=== PATIENT | female | born 1990 | race African-American/Black ===

== ENCOUNTER 2024-05-01 07:03 | Emergency (ER) | payer OTHER, SELFPAY ==
--- NOTE | ~2024-05-01 | XR_ITS ---
EXAMINATION: XR hand LT min 3V, XR wrist LT min 3V DATE: 05/01/2024 08:00 INDICATION: Left hand and wrist pain post fall with limited range of movement TECHNIQUE: 1. Posteroanterior, oblique, and lateral views of the left wrist were obtained. 2. Dorsal palmar, oblique and lateral views of the left hand were obtained. COMPARISON: None. FINDINGS: Alignment of the left hand and wrist is normal. No fracture identified. Joint spaces are normal. N o focal soft tissue swelling. IMPRESSION: 1. Normal left hand and wrist radiographs. Reviewed, dictated and finalized at location A. [place] KEY HOLDER IMPRESSION: 1. Normal left hand and wrist radiographs.
[2024-05-01 07:06] VITALS: BP 185/101; PULSE 87; RESP 18; TEMP 36.9; O2SAT 97
--- NOTE | 2024-05-01 07:21 | ED_ITS ---
HPI - General Adult General Chief complaint: Extremity Injury, Upper Stated complaint: L wrist pain Time Seen by Provider: 05/01/24 07:10 History of Present Illness HPI narrative: 33-year-old female present to the emergency department for evaluation for left hand and left wrist pain. Patient reports she was walking and slipped on the ice while she was walking into work. Patient denies any other pain or injury. Patient denies striking head denies loss conscious. Patient denies any left shoulder and left elbow pain. Patient does report increased pain with movement of the left wrist. No deformity. Related Data Allergies Allergy/AdvReac Type Severity Reaction Status Date / Time No Known Allergies Allergy Verified 05/01/24 07:05 Review of Systems Review of Systems: All systems reviewed & are unremarkable except as noted in HPI and below Exam Narrative: APPEARANCE: Well appearing, no pain, no distress, well-nourished. HEAD: normocephalic, atraumatic. EYES: PERRLA/EOMI, conjunctivae clear. NOSE: Normal no drainage EARS:TMS clear with good light reflex. THROAT: Pharynx clear, no exudate. NECK: Supple. No adenopathy, no masses. RESPIRATORY: Airway patent, respirations nonlabored. Clear to auscultation bilaterally, no rales, rhonchi, wheezing. CARDIOVASCULAR: Regular rate and rhythm without murmurs rubs or gallops. ABDOMINAL: Soft, nontender, nondistended, normal bowel sounds MUSCULOSKELETAL: no tenderness of left shoulder left elbow left proximal forearm, patient does have tenderness to left wrist and left hand. Neurovascular intact without deformity. NEURO: Alert. Cranial nerves II through XII intact. Grossly intact SKIN: Warm, dry. Normal Color Course Vital Signs Vital signs: Vital Signs Temperature 98.4 F 05/01/24 07:06 Pulse Rate 87 05/01/24 07:06 Respiratory Rate 18 05/01/24 07:06 Blood Pressure 185/101 H 05/01/24 07:06 Pulse Oximetry 97 05/01/24 07:06 Oxygen Delivery Room Air 05/01/24 07:06 Temperature 98.4 F 05/01/24 07:06 Pulse Rate 60 05/01/24 08:39 Respiratory Rate 16 05/01/24 08:39 Blood Pressure 153/99 H 05/01/24 08:39 Pulse Oximetry 100 05/01/24 08:39 Oxygen Delivery Room Air 05/01/24 07:06 Medical Decision Making MDM Narrative Medical decision making narrative: 33-year-old female presenting to the emergency department for evaluation for left hand and wrist pain after a fall in the parking lot. X-rays were negative for acute fracture dislocation. Patient was provided Dereje wrap for comfort. Patient did request off until Thursday. Work note was provided. Differential Diagnosis Differential Diagnosis: And fracture, wrist fracture, hand contusion, wrist contusion, wrist sprain Vital Signs Vital Signs: Vital Signs Temperature 98.4 F 05/01/24 07:06 Pulse Rate 87 05/01/24 07:06 Respiratory Rate 18 05/01/24 07:06 Blood Pressure 185/101 H 05/01/24 07:06 Pulse Oximetry 97 05/01/24 07:06 Oxygen Delivery Room Air 05/01/24 07:06 Temperature 98.4 F 05/01/24 07:06 Pulse Rate 60 05/01/24 08:39 Respiratory Rate 16 05/01/24 08:39 Blood Pressure 153/99 H 05/01/24 08:39 Pulse Oximetry 100 05/01/24 08:39 Oxygen Delivery Room Air 05/01/24 07:06 Imaging Data Radiologist's impression: Impressions Hand X-Ray 05/01/24 08:07 IMPRESSION: 1. Normal left hand and wrist radiographs. Wrist X-Ray 05/01/24 08:07 IMPRESSION: 1. Normal left hand and wrist radiographs. Discharge Plan Discharge Clinical Impression: Sprain and strain of wrist Patient Disposition: Home, Self-Care Condition: Stable Instructions: Antibiotic Form, Wrist Sprain (ED) Additional Instructions: Tylenol and ibuprofen for comfort. Ice as directed. Dereje wrap for comfort. Have close follow-up with your primary care physician. If you have any worsening symptoms then please call or return to the emergency department. Patient Language: Sudanese Follow-up/Referrals: PHYSICIAN NOT ON STAFF,NONSTAFF [Primary Care Provider] - Stand Alone Forms: Work/School Release IP
--- OUTSIDE RECORDS SUMMARY | 2024-05-01 07:37 | XMS_ITS | Clinical Summary ---
Author Organization [facility] [employer] Address [address] [place] [address] Care Team Providers Care Barrel Drainer Name Role Phone Unavailable Primary Care Provider Unavailabl e Source Comments [facility],non-owned Affiliates and Associated Physician Practices is amultiple site organization consisting of ambulatory clinics and hospital sitesin [place], [place], [place] and [place]. This disclosure is being madepursuant to the Care Everywhere program and may not contain all information available regarding this patient. Last updated 17.[facility] [employer] Allergies No known active allergies Medications * Be aware that medications may not be up to date on this document. Alwaysverify current medications with the patient. Medication Sig Dispensed Refills Start Date End Date Status amLODIPine (NORVASC) 5 MG tablet Take 5 mg by mouth once daily 11/23/2020 Active ketoconazole (NIZORAL) 2 % shampoo Apply to wet hair, leave on for 3 minutes, then rinse; three times weekly. 30 days supply 120 mL 5 07/16/2021 Active clobetasol (TEMOVATE) 0.05 % solution Apply to affected area on scalp BID. 30 day supply. 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 03/13/2019 R/O PTL: -No e/o PTL, UTI, cervicitis/vaginitis. SSE: WNL wet prep, normal physiologic discharge. SVE cl/l/high -No e/o dehydration, hydrated with PO fluids. Urine dip negative -No e/o contractions with palpation or on toco, patient comfortable -Abdomen benign, likely round ligament/musculoskeletal discomforts of . Pain improved with Tylenol and heat packs -Discussed normal physiologic discomforts of . Encouraged tylenol, heat, PG support belt. PTL precautions reviewed FWB: Reactive NST Third 01/07/2019 Hx of section 01/07/2019 Hx of vaginal after 01/07/2019 Encounter for ultrasound 01/07/2019 Abnormal finding on ultrasound 01/07/2019 Overview (01/07/2019): On outside scan dilated renal pelvis Immunizations Name Administration Dates Next Due INFLUENZA VACCINE, TRIV. (AF LURIA, FLUZONE TRIVALENT; 6MO+) (IIV3) 02/01/2018 INFLUENZA VACCINE 09/29/2020,12/11/2019 Family History Medical History Relation Name Comments None Known Brother None Known Father None Known Maternal Aunt None Known Maternal Grandfather None Known Maternal Grandmother None Known Maternal Uncle None Known Mother None Known Other None Known Paternal Aunt None Known Paternal Grandfather None Known Paternal Grandmother None Known Paternal Uncle None Known Sister Asthma Neg Hx CVA Neg Hx Cancer - Breast Neg Hx Cancer - Other Neg Hx Cancer - Skin, Melanoma Neg Hx Cancer - Skin, Non Melanoma Neg Hx Eczema Neg Hx Hemophilia Neg Hx Psoriasis Neg Hx Relation Name Status Comments Brother Father Maternal Aunt Maternal Grandfather Maternal Grandmother Maternal Uncle Mother Other Paternal Aunt Paternal Grandfather Paternal Grandmother Paternal Uncle Sister Social History Tobacco Use Types Packs/Day Years Used Date Smoking Tobacco: Never Smokeless Tobacco: Never Sex and Gender Information Value Date Recorded Sex Assigned at Not on file Gender Identity Female 10/03/2018 5:00 PM CDT Sexual Orientation Not on file Last Filed Vital Signs Vital Sign Reading Time Taken Comments Blood Pressure 130/70 10/03/2018 5:30 PM CDT Pulse 72 10/03/2018 2:03 PM CDT Temperature 36.8 C (98.2 F) 10/03/2018 2:03 PM CDT Respiratory Rate 16 10/03/2018 2:03 PM CDT Oxygen Saturation 100% 10/03/2018 5:45 PM CDT Inhaled Oxygen Concentration - - Weight 88.5 kg (195 lb) 10/03/2018 1:25 PM CDT Height - - Body Mass Index - - Plan of Treatment Health Maintenance Due Date Last Done Comments PAP SMEAR 1990 HIV SCREENING 12/19/2007 HEPATITIS C SCREENING 12/14/2010 DTAP/TDAP/TD VACCINES (1 - Tdap) 12/19/2011 HEPATITIS B VACCINE (1 of 3 - 19+ 3-dose series) 12/19/2011 COVID-19 VACCINE (3 - 2023-2 5 season) 2023 09/26/2020, 09/05/2020 INFLUENZA VACCINE (#1) 2023 , 12/11/2019, 02/01/2018 DEPRESSION SCREENING 03/23/2024 ZOSTER VACCINE (1 of 2) 2042 HIB VACCINE Aged Out No longer eligi ble based on patient's age to complete this topic HPV VACCINE Aged Out No longer eligi ble based on patient's age to complete this topic MENINGOCOCCAL (Group B) VACCINE Aged Out No longer eligible b ased on patient's age to complete this topic MENINGOCOCCAL VACCINE Aged Out No cesar mickey eligible based on patient's age to complete this topic PNEUMOCOCCAL VACCINE Aged Out No long er eligible based on patient's age to complete this topic Steven Jenkins Personal/Family Self 1990 [id number] [id number] Steven Jenkins Personal/Family Self 1990 [id number] [place] [id number] E-SCREEN,[employer] Employer [employer]N [employer] [address] [place] [address]
--- OUTSIDE RECORDS SUMMARY | 2024-05-01 07:37 | XMS_ITS | Patient Health Summary ---
Author Organization [facility] Address [address] [place] [place] [address] Care Team Providers Care Career Development Engineer Name Role Phone Unavailable Primary Care Provider Unavailabl e Note from [facility],non-owned Affiliates and Associated Physician Practices is amultiple site organization consisting of ambulatory clinics and hospital sitesin [place], [place], [place] and [place]. This disclosure is being madepursuant to the Care Everywhere program and may not contain all information available regarding this patient. Last updated 17.[facility] Allergies No known active allergies Medications * Be aware that medications may not be up to date on this document. Alwaysverify current medications with the patient. * amLODIPine (NORVASC) 5 MG tablet(Started 11/23/2020) Take 5 mg by mouth once daily * ketoconazole (NIZORAL) 2 % shampoo(Started 07/16/2021) Apply to wet hair, leave on for 3 minutes, then rinse; three times weekly. 30 days supply 5 refills by 07/16/2022 * clobetasol (TEMOVATE) 0.05 % solution(Started 07/16/2021) Apply to affected area on scalp BID. 30 day supply. 5 refills by 07/16/2022 * clobetasol (Temovate) 0.05 % ointment(Started 04/07/2023) APPLY TO THE AFFECTED AREA ON HANDS TWICE DAILY Active Problems Problem Noted Date Diagnosed Date Other seborrheic dermatitis 07/16/2021 History of staph infection 03/11/2020 Dyshidrotic eczema 02/10/2020 Secondary impetiginization 02/10/2020 Abdominal pain 03/13/2019 Third 01/07/2019 Hx of section 01/07/2019 Hx of vaginal after 01/07/2019 Encounter for ultrasound 01/07/2019 Abnormal finding on ultrasound 01/07/2019 Immunizations * INFLUENZA VACCINE, TRIV. (AFLURIA, FLUZONE TRIVALENT; 6MO+) (IIV3)(Given 02/01/2018) * INFLUENZA VACCINE(Given 09/29/2020, 12/11/2019) Social History Tobacco Use Types Packs/Day Years [...] - - Body Mass Index - - Procedures * CULTURE AEROBIC(Performed 07/19/2021) Performed for Other seborrheic dermatitis * CULTURE AEROBIC(Performed 02/13/2020) Performed for Rash and other nonspecific skin eruption * SONOGRAM - COMPLETE(Performed 01/10/2019) Performed for Third (HCC), Hx of section, Hx of vaginal after , Encounter for ultrasound (HCC), Abnormal finding on ultrasound * VARICELLA ZOSTER ANTIBODY IGG(Performed 10/22/2018) Performed for Routine general medical examination at a health care facility * RUBELLA ANTIBODY IGG TITER(Performed 10/22/2018) Performed for Routine general medical examination at a health care facility * MUMPS ANTIBODY IGG(Performed 10/22/2018) Performed for Routine general medical examination at a health care facility * RUBEOLA ANTIBODY IGG(Performed 10/22/2018) Performed for Routine general medical examination at a health care facility * HEPATITIS B SURFACE ANTIBODY QUANT(Performed 10/22/2018) Performed for Routine general medical examination at a health care facility * US OB LESS 14 WKS W TRANSV W DOPP(Performed 10/03/2018) Performed for Left lower quadrant abdominal pain affecting in first trimester (HCC) * BLOOD TYPE ABO+ RH PANEL(Performed 10/03/2018) * HCG URINE QUALITATIVE - POCT (IP) INTERFACED(Performed 10/03/2018) * URINALYSIS REFLEX MICROSCOPIC REFLEX CULTURE(Performed 10/03/2018) * HCG URINE QUAL POCT NOTIFICATION(Performed 10/03/2018) * HCG BETA BLOOD QUANTITATIVE(Performed 10/03/2018) * COMPREHENSIVE METABOLIC PANEL(Performed 10/03/2018) * CBC W AUTO DIFFERENTIAL(Performed 10/03/2018) Results * (ABNORMAL) CULTURE AEROBIC (07/19/2021 10:00 AM CDT) Only the most recent of2 resultswithin the time period is included. Culture (A) [facility] Comment: CULTURE, AEROBIC BACTERIA Micro Number: [id number] Test Status: Final Specimen Source: Scalp Specimen Quality: Adequate Result: Heavy growth of Methicillin resistant Staphylococcus aureus (MRSA) Negative for inducible clindamycin resistance. COMMENT: Skin jose also present. MRSA INT TERRANCE CIPROFLOXACIN I 2 CLINDAMYCIN S <=0.25 ERYTHROMYCIN R >=8 GENTAMICIN S <=0.5 LEVOFLOXACIN S 1 OXACILLIN R NR 1 TETRACYCLINE S <=1 TRIMETHOPRIM/SULFA S <=10 VANCOMYCIN S 1 S=Susceptible I=Intermediate R=Resistant * = Not Tested NR = Not Reported NN = See Therapy Comments THERAPY COMMENTS Note 1: Oxacillin-resistant staphylococci are resistant to all currently available beta-lactam antimicrobial agents with the possible exception of Ceftaroline. NO COLLECTION DATE RECEIVED. WE HAVE USED THE DATE THE SPECIMEN WAS RECEIVED BY THIS LABORATORY THE COLLECTION DATE. IF THIS IS INCORRECT, PLEASE CONTACT CLIENT SERVICES. PHONE NUMBER: [phone] Test Performed at: [facility] [address] MARISOL WU MD Microbiology ENTIRE SCALP / Unknown 07/17/2021 2:35 AM CDT Al Mir MD LAB - MICROBIOLOGY [address] [place] [address] * SONOGRAM - COMPLETE (01/10/2019 8:28 AM CDT) Anatomical Region Laterality Modality Other 01/10/2019 8:28 AM CDT Narrative 01/10/2019 11:54 AM CDT [facility] PHONE: FAX: Pat. Name: STEVEN HOUSTON Pat. No: [id number] Study Date: 01/10/2019 8:28am , Age: 09 1990, 28 Pregnancies: 3, Para 2 Height: 62 in Weight: 193 lb LMP: 08/12/2018 GA by LMP: 21w4d GA by US: 21w5d PERCY: 05/18/2019 GA Selected: 21w5d (Sonographic) PERCY: 05/18/2019 Referring MD: Pradip Peace MD Beaver Trapper: Ibeth Yu RDMS CPT4: 22755 BMI: 35.3 Hist/Ind: EIF Dilated renal pelvis on outside scan Qnatal: low risk MEASUREMENTS & AGE GROWTH EVALUATION Measurement GA Range Srce %for GA Ratios ----- ---- ------- BPD 5.1 cm 21w3d ([id number]) Hadl BPD 39% FL/BPD 0.76 HC 19.8 cm 22w0d (16c0e-77p6m) Hadl HC 48% FL/AC 0.23 AC 16.9 cm 21w6d ([id number]) Hadl AC 49% HC/AC 1.17 (1.05 - 1.24) FL 3.9 cm 22w3d ([id number]) Hadl FL 65% CI 0.73 (0.70 - 0.86) HL 3.8 cm 23w2d ([id number]) Abelino HL 76% Cere 2.6 cm 23w1d ([id number]) Chano Cere86% GA for sonogram 21w5d ([id number]) Weight Estimate: based on (BPD,HC,AC,FL) Hadlock Weight: 474 gm (405-543gm) Hadloc : 1lbs, 0oz Normal: 455 gm (341-568gm) Hadloc Wt% 64% for 21w5d Heart Rate: 153 bpm EVAL, PLACENTA Presentation: cephalic Umbilical Cord: 3 Vessels Placenta: anterior Heart Rate: 153 bpm Amniotic Fluid Volume: Normal Anatomy!Normal!Abnormal!Suboptimal!Prev. Seen!Comments Cranium ! x ! ! ! ! Mdl (CSP/Thal! x ! ! ! ! Ventricles ! x ! ! ! ! Choroid Plexu! x ! ! ! ! Cerebellum ! x ! ! ! ! Cisterna M. ! x ! ! ! ! Nuchal Fold ! x ! ! ! ! Profile ! x ! ! ! ! Nasal Bone ! x ! ! ! ! Lip ! x ! ! ! ! Spine ! x ! ! ! ! Lungs ! x ! ! ! ! 4 Chamber Hea! x ! ! ! ! LVOT ! x ! ! ! ! RVOT ! x ! ! ! ! 3 Vessel View! x ! ! ! ! Cross-over ! x ! ! ! ! Ductal Arch ! x ! ! ! ! Aortic Arch ! x ! ! ! ! Caval View ! x ! ! ! ! Situs ! x ! ! ! ! Diaphragm ! x ! ! ! ! Stomach ! x ! ! ! ! Bowel ! x ! ! ! ! Kidneys ! x ! ! ! ! Bladder ! x ! ! ! ! 3 Vessel Cord! x ! ! ! ! Cord In! x ! ! ! ! Upper Extremi! x ! ! ! ! Hands ! x ! ! ! ! Lower Extreme! x ! ! ! ! Feet ! x ! ! ! ! External Celina! x ! ! ! !Female Placental Cor! x ! ! ! ! CLINICAL SUMMARY Study Number: 1 A single fetus is seen in cephalic presentation. The measurements today are consistent with appropriate size for the PERCY provided. The PERCY is based on LMP and prior ultrasound . The amniotic fluid volume is within normal limits. anatomy was technically adequate. A left echogenic focus is seen. No major malformations were seen within the limitations of ultrasound. IMPRESSION: Single, live, intrauterine at 21w5d size is within normal limits Amniotic fluid volume: within normal limits Left echogenic focus with low risk Qnatal RECOMMEND: Ultrasound as clinically indicated Thank you for allowing us the opportunity to care for your patient. Damián Rutherford MD <Electronic Signature> 01/10/2019 11:52am Ordering Provider Unlisted MD HERNANDEZ ORDERA BLES * HEPATITIS B SURFACE ANTIBODY QUANT (10/22/2018 11:17 AM CDT) Pathologist [facility] Hepatitis B Virus Surface Antibody >1000.00 IU/L 10/25/2018 10:55 AM CDT [facility] ([facility]) Comment: The anti-HBs is greater than or equal to 10 IU/L. This patient has either had an antibody response to HBV vaccination, received a transfusion, or has recovered from HBV infection. This patient should be considered immune to hepatitis B. An anti-HBs result greater than or equal to 10 IU/L implies immunity. For post-vaccination antibody testing guidelines for the general public refer to MMWR March 14, 2005/Vol. 54(No. 16);04-14, and for healthcare workers refer to MMWR March 11, 2013/Vol. 62(No. 10);04-10. Reference Interval: anti-HBs 9.99 IU/L or less ....... Negative 10.00 IU/L or greater .... Positive Results greater than 1,000.00 IU/L are reported as greater than 1,000.00 IU/L. This assay should not be used for blood donor screening, associated re-entry protocols, or for screening Human Cell, Tissues and Cellular and Tissue-Based Products (HCT/P). Performed by [facility], [address] [place] [address] www.[email or web address], Benjy Sanchez MD, Lab. Director Blood BLOOD SPECIMEN / Unknown Venipuncture / Unknown 10/22/2018 11:17 AM CDT 10/22/2018 11:17 AM CDT Ann Cramer ENERGY EFFICIENCY ENGINEER-RESEARCH DAIRY FARM SUPERVISOR LAB - SEROLOGY ORDERABLES [facility] ([facility]) [address] [place] [address], [facility] * RUBELLA ANTIBODY IGG TITER (10/22/2018 11:17 AM CDT) Pathologist [facility] Rubella Antibody IgG 39.3 IU/mL 10/25/2018 4:01 AM CDT [facility] ([facility]) Comment: INTERPRETIVE INFORMATION: Rubella Antibody, IgG Less than 9 IU/mL ........ Not Detected 9 - 9.9 IU/mL ............ Indeterminate-Repeat testing in 10-14 days may be helpful. 10 IU/mL or Greater ...... Detected The best evidence for current infection is a significant change on two appropriately timed specimens, where both tests are done in the same laboratory at the same time. The magnitude of the measured result is not indicative of the amount of antibody present. Performed by [facility], [address] [id number] [email or web address], Benjy Sanchez MD, Lab. Director Blood BLOOD SPECIMEN / Unknown Venipuncture / Unknown 10/22/2018 11:17 AM CDT 10/22/2018 11:17 AM CDT Ann Mykel Cramer ENERGY EFFICIENCY ENGINEER-RESEARCH DAIRY FARM SUPERVISOR LAB - SEROLOGY ORDERABLES [facility] ([facility]) [address] [place] [address], [facility] * RUBEOLA ANTIBODY IGG (10/22/2018 11:17 AM CDT) [facility] Measles (Rubeola) Antibody IgG >300.0 AU/mL 10/25/2018 3:58 AM CDT [facility] ([facility]) Comment: INTERPRETIVE INFORMATION: Measles (Rubeola) Antibody, IgG 24.9 AU/mL or less........ Negative - No significant level of detectable measles (rubeola) IgG antibody. 25.0-29.9 AU/mL .......... Equivocal - Repeat testing in 10-14 days may be helpful. 30.0 AU/mL or greater .... Positive - IgG antibody to measles (rubeola) detected which may indicate a current or past exposure/immunization to measles (rubeola). The best evidence for current infection is a significant change on two appropriately timed specimens, where both tests are done in the same laboratory at the same time. Performed by [facility], [address] [id number] [email or web address], Benjy Sanchez MD, Lab. Director Blood BLOOD SPECIMEN / Unknown Venipuncture / Unknown 10/22/2018 11:17 AM CDT 10/22/2018 11:17 AM CDT [facility] - CHEMISTRY ORDERABLES Performing Organization Address [facility] de Phone Number [facility] ([facility]) [address] * MUMPS ANTIBODY IGG (10/22/2018 11:17 AM CDT) Mumps Virus Antibody IgG 65.3 AU/mL 10/25/2018 5:20 AM CDT [facility] ([facility]) Comment: INTERPRETIVE INFORMATION: Mumps Ab, IgG by OLIVERIO 8.9 AU/mL or less .... Negative - No significant level of detectable IgG mumps virus antibody 9.0-10.9 AU/mL ....... Equivocal - Repeat testing in 10-14 days may be helpful 11.0 AU/mL or greater: Positive - IgG antibody to mumps virus detected, which may indicate a current or past exposure/ immunization to mumps virus. The best evidence for current infection is a significant change on two appropriately timed specimens, where both tests are done in the same laboratory at the same time. Performed by [facility], [address] [place] [address] www.[email or web address], Benjy Sanchez MD, Lab. Director Blood BLOOD SPECIMEN / Unknown Venipuncture / Unknown 10/22/2018 11:17 AM CDT 10/22/2018 11:17 AM CDT [facility] - CHEMISTRY ORDERABLES Performing Organization Address [facility] Co de Phone Number [facility] ([facility]) [address] * VARICELLA ZOSTER ANTIBODY IGG (10/22/2018 11:17 AM CDT) Varicella zoster Virus Antibody IgG 1505 IV 10/25/2018 5:18 AM CDT [facility] ([facility]) Comment: INTERPRETIVE INFORMATION: VZV Ab, IgG 134 IV or less ....... Negative - No significant level of detectable IgG varicella- zoster antibody. 135 -165 IV .......... Equivocal - Repeat testing in 10-14 days may be helpful. 166 IV or greater .... Positive - IgG antibody to varicella-zoster detected, which may indicate a current or past varicella-zoster infection. The best evidence for current infection is a significant change on two appropriately timed specimens, where both tests are done in the same laboratory at the same time. Performed by [facility], [address] [place] [address] www.[email or web address], Benjy Sanchez MD, Lab. Director Blood BLOOD SPECIMEN / Unknown Venipuncture / Unknown 10/22/2018 11:17 AM CDT 10/22/2018 11:17 AM CDT Ann Cramer ENERGY EFFICIENCY ENGINEER-RESEARCH DAIRY FARM SUPERVISOR LAB - CHEMISTRY ORDERABLES [facility] ([facility]) [address] [id number], [facility] * US OB LESS 14 WKS W TRANSV W DOPP (10/03/2018 6:18 PM CDT) Anatomical Region Laterality Modality Ultrasound 10/03/2018 6:27 PM CDT Impressions 10/03/2018 6:31 PM CDT Viable Intrauterine as described. No subchorionic hematoma identified. Reading Radiologist: Vinny Finch MD on 10/03/2018 at 6:31 PM Narrative 10/03/2018 6:31 PM CDT Transabdominal and transvaginal pelvic ultrasound; early obstetric Spectral Doppler ultrasound COMPARISON: No relevant examinations. HISTORY: Positive test. Pelvic pain. HISTORY: From RIS- Other specified related conditions, first trimester. FINDINGS + TECHNIQUE: Real time transabdominal and transvaginal pelvic ultrasound was performed by the claim professional with DICOM image capture. Additionally, Color Doppler and pulse wave Spectral Doppler interrogation was performed and interpreted. Obstetric follow-up care is recommended possibly including follow-up laboratory evaluation and possible dedicated obstetric ultrasound examinations at OB's discretion. This exam does not constitute a survey. Uterus/Fetus: An intrauterine is identified. Single intrauterine identified. Cesar Chavez-rump length of 12 mm corresponds with 7 weeks 3 days. Heart rate is 160 bpm Ovarian Measurement: Right: within normal limits. Left: within normal limits. No suspicious adnexal or ovarian lesions. 13 mm left-sided corpus luteum. There is preserved doppler flow to the visible ovary/ovaries. No evidence of significant free intraperitoneal fluid. Procedure Note Al Finch MD - 10/03/2018 Transabdominal and transvaginal pelvic ultrasound; early obstetric Spectral Doppler ultrasound COMPARISON: No relevant examinations. HISTORY: Positive test. Pelvic pain. HISTORY: From RIS- Other specified related conditions, first trimester. FINDINGS + TECHNIQUE: Real time transabdominal and transvaginal pelvic ultrasound was performed by the claim professional with DICOM image capture. Additionally, Color Doppler and pulse wave Spectral Doppler interrogation was performed and interpreted. Obstetric follow-up care is recommended possibly including follow-up laboratory evaluation and possible dedicated obstetric ultrasound examinations at OB's discretion. This exam does not constitute a survey. Uterus/Fetus: An intrauterine is identified. Single intrauterine identified. Cesar Chavez-rump length of 12 mm corresponds with 7 weeks 3 days. Heart rate is 160 bpm Ovarian Measurement: Right: within normal limits. Left: within normal limits. No suspicious adnexal or ovarian lesions. 13 mm left-sided corpus luteum. There is preserved doppler flow to the visible ovary/ovaries. No evidence of significant free intraperitoneal fluid. IMPRESSION Viable Intrauterine as described. No subchorionic hematoma identified. Reading Radiologist: Vinny Finch MD on 10/03/2018 at 6:31 PM Carlton Ortez MD ORDERABLES * BLOOD TYPE ABO+ RH PANEL (10/03/2018 3:42 PM CDT) ABO A 10/03/2018 4:48 PM CDT [facility] Rh Type Positive 10/03/2018 4:48 PM CDT [facility] Blood BLOOD SPECIMEN / Unknown Venipuncture / Unknown 10/03/2018 3:42 PM CDT 10/03/2018 3:45 PM CDT Kendy Schmitz ENERGY EFFICIENCY ENGINEER-RESEARCH DAIRY FARM SUPERVISOR LAB - BLOOD BANK O RDERABLES [facility] [address] [place] [address], [facility] [phone] * (ABNORMAL) HCG URINE QUALITATIVE - POCT (IP) INTERFACED (10/03/2018 1:26 PM CDT) HCG Qual Urine Positive(A ) Negative 10/03/2018 1:31 PM CDT [facility] Urine URINE / Unknown 10/03/2018 1 :26 PM CDT 10/03/2018 1:30 PM CDT Provider Unknown LAB - POINT OF CARE ORDERABLES Performing Organization Address [facility] Co de Phone Number [facility] [address] [place] [address] * (ABNORMAL) URINALYSIS REFLEX MICROSCOPIC REFLEX CULTURE (10/03/2018 1:22 PM CDT) Color UA Yellow Straw, Yellow 10/03/2018 1:30 PM CDT [facility] Clarity UA Clear Clear 10/03/2018 1:30 PM CDT [facility] Glucose UA Negative Negative 10/03/2018 1:30 PM CDT [facility] Bilirubin UA Negative Negative 10/03/2018 1:30 PM CDT [facility] Ketone UA 1+(A) Negative 10/03/2018 1:30 PM CDT [facility] Specific [place] UA 1.020 1.005 - 1.030 10/03/2018 1:30 PM CDT [facility] Blood UA Negative Negative 10/03/2018 1:30 PM CDT [facility] pH UA 6.0 5.0 - 8.0 pH 10/03/2018 1:30 PM CDT [facility] Protein UA Negative Negative 10/03/2018 1:30 PM CDT [facility] Urobilinogen UA Negative Negative mg/dL 10/03/2018 1:30 PM CDT [facility] Nitrite UA Negative Negative 10/03/2018 1:30 PM CDT [facility] Leukocyte UA Negative Negative 10/03/2018 1:30 PM CDT [facility] Urine Microscopy Urine microscopy not indicated 10/03/2018 1:30 PM CDT [facility] Reflex Status Culture not indicated 10/03/2018 1:30 PM CDT [facility] Urine URINE SPECIMEN OBTAINED BY CLEAN CATCH PROCEDURE / Unknown Collection / Unknown 10/03/2018 1:22 PM CDT 10/03/2018 1:25 PM CDT Narrative [facility] - 10/03/2018 1:30 PM CDT Carlton Ortez MD LAB - URINALYSIS ORD ERABLES [facility] [address] [place] [address] * HCG URINE QUAL POCT NOTIFICATION (10/03/2018 1:20 PM CDT) Comment Notification Label Only - See Separate Report 10/03/2018 2:31 PM CDT [facility] Urine URINE / Unknown 10/03/2018 1 :20 PM CDT 10/03/2018 1:20 PM CDT Carlton Ortez MD LAB - URINALYSIS ORD ERABLES Performing Organization Address City/[facility]/ZIP Co de Phone Number [facility] [address] [place] [address] * (ABNORMAL) CBC W AUTO DIFFERENTIAL (10/03/2018 1:17 PM CDT) WBC 7.4 4.4 - 10.7 x10E9/L 10/03/2018 1:27 PM CDT [facility] WBC Corrected x10E9/L 10/03/2018 1:27 PM CDT [facility] RBC 4.53 3.80 - 5.20 x10E12/L 10/03/2018 1:27 PM CDT [facility] Hemoglobin 13.4 12.0 - 15.6 gm/dL 10/03/2018 1:27 PM CDT [facility] Hematocrit 39.9 35.9 - 45.5 % 10/03/2018 1:27 PM CDT [facility] MCV 88.1 80.7 - 98.3 fl 10/03/2018 1:27 PM CDT [facility] MCH 29.6 26.7 - 34.0 pg 10/03/2018 1:27 PM [facility] MCHC 33.6 30.8 - 35.9 gm/dL 10/03/2018 1:27 PM [facility] Platelet Count 299 153 - 416 x10E9/L 10/03/2018 1:27 PM [facility] RDW-CV 12.1 12.1 - 14.9 % 10/03/2018 1:27 PM [facility] MPV 8.9(L) 9.4 - 12.9 fl 10/03/2018 1:27 PM [facility] Neutrophils % 48.5 44.0 - 73.0 % 10/03/2018 1:27 PM [facility] Lymphocytes % 45.3(H) 20.0 - 43.0 % 10/03/2018 1:27 PM [facility] Monocytes % 5.1 5.0 - 13.0 % 10/03/2018 1:27 PM [facility] Eosinophils % 0.4 0.0 - 6.0 % 10/03/2018 1:27 PM [facility] Basophils % 0.4 0.0 - 2.0 % 10/03/2018 1:27 PM [facility] Immature Granulocytes 0.3 0 - 1 % 10/03/2018 1:27 PM [facility] Neutrophil Absolute 3.59 2.01 - 7.14 x10E9/L 10/03/2018 1:27 PM [facility] Lymphocytes Absolute 3.36 1.07 - 3.94 x10E9/L 10/03/2018 1:27 PM [facility] Monocytes Absolute 0.38 0.26 - 1.07 x10E9/L 10/03/2018 1:27 PM [facility] Eosinophils Absolute 0.03 0 - 0.47 x10E9/L 10/03/2018 1:27 PM [facility] Basophils Absolute 0.03 0 - 0.08 x10E9/L 10/03/2018 1:27 PM [facility] Immature Granulocytes Absolute 0.02 0.00 - 0.06 x10E9/L 10/03/2018 1:27 PM [facility] nRBC Auto 0 /100 WBC 10/03/2018 1:27 PM CDT [facility] Blood BLOOD SPECIMEN / Unknown Venipuncture / Unknown 10/03/2018 1:17 PM CDT 10/03/2018 1:25 PM CDT Carlton Ortez MD LAB - HEMATOLOGY ORD ERABLES [facility] [address] [place] [address] * (ABNORMAL) COMPREHENSIVE METABOLIC PANEL (10/03/2018 1:17 PM CDT) Glucose 79 74 - 106 mg/dL 10/03/2018 1[facility] [facility] Sodium 137 136 - 145 mmol/L 10/03/2018 1:[address] [facility] Potassium 3.6 3.5 - 5.1 mmol/L 10/03/2018 1:[address] [facility] Chloride 105 98 - 107 mmol/L 10/03/2018 1:[address] [facility] CO2 21(L) 23 - 31 mmol/L 10/03/2018 1:[address] [facility] Calcium 9.6 8.4 - 10.2 mg/dL 10/03/2018 1:[address] [facility] Anion Gap 11 8 - 16 mmol/L 10/03/2018 1:[address] [facility] BUN 8 7 - 18.7 mg/dL 10/03/2018 1:[address] [facility] Creatinine 0.71 0.55 - 1.02 mg/dL 10/03/2018 1:[address] [facility] Alkaline Phosphatase 65 40 - 150 U/L 10/03/2018 1:[address] [facility] ALT 12(L) 13 - 61 U/L 10/03/2018 1:[address] [facility] AST 17 5 - 34 U/L 10/03/2018 1:[address] [facility] Protein Total 7.7 6.4 - 8.3 gm/dL 10/03/2018 1:[address] [facility] Albumin 4.0 3.5 - 5.2 gm/dL 10/03/2018 1:[address] [facility] Bilirubin Total 0.4 0.2 - 1.0 mg/dL 10/03/2018 1:44 PM CDT [facility] eGFR by MDRD >60 >60 mL/min/1.7 3m2 10/03/2018 1:44 PM CDT [facility] eGFR by MDRD >60 >60 mL/min/1.7 3m2 10/03/2018 1:44 PM CDT [facility] Blood BLOOD SPECIMEN / Unknown Venipuncture / Unknown 10/03/2018 1:17 PM CDT 10/03/2018 1:25 PM CDT Narrative [facility] - 10/03/2018 1:44 PM CDT Attention clinician: BUN Reference Range has changed. Carlton Ortez MD LAB - CHEMISTRY RASHID PHELPS [facility] Organization Address City/State/ZIP Co de Phone Number [facility] [address] [place] [address] * HCG BETA BLOOD QUANTITATIVE (10/03/2018 1:17 PM CDT) Pathologist [facility] hCG Quantitative 144,690.6 5 mIU/mL 10/03/2018 2:08 PM CDT [facility] Blood BLOOD SPECIMEN / Unknown Venipuncture / Unknown 10/03/2018 1:17 PM CDT 10/03/2018 1:25 PM CDT Narrative [facility] - 10/03/2018 2:08 PM CDT hCG Reference Range, mIU/mL: Males 0-2.0 Non Females 0-6.0 Perimenopausal Females ages 41-55* 0-7.7 Postmenopausal Females age >55* 0-14 Females, Weeks after Last Menstrual Period 0.2-1 week 5-50 1 - 2 weeks 50-500 2 - 3 weeks 100-5000 3 - 4 weeks 500-10,000 4 - 5 weeks 1000-50,000 5 - 6 weeks 10,000-100,000 6 - 8 weeks 15,000-200,000 2 - 3 months 10,000-100,000 Trophoblastic Disease >100,000 *In higher than expected hCG in females > age 40, a serum FSH >20 IU/L makes unlikely. Carlton Ortez MD LAB - CHEMISTRY ORDE RABLES [facility] [address] [place] [address]
--- OUTSIDE RECORDS SUMMARY | 2024-05-01 07:37 | XMS_ITS | Data Portability ---
Author Organization [facility] [place] , [facility] Address [address] [place] [address] Assessment No assessment recorded. Plan of Treatment Reminders Order Date Submit Date Provider Last Modified By Organization Details Last Modified Time Details Appointments None recorded . Lab None recorded . Referral None recorded . Procedures None recorded . Surgeries None recorded . Imaging None recorded . Medication Orders Ultram 50 mg tablet 022 06/15/19 [id number], [address], [place], [id number], 2 17:41:13 Patient TargetsNo targets recorded. Patient Instructions Encounter Date Encounter Id Patient Instructions Last Modified By Organization Details Last Modified Time 06/14/2021 [id number] Incision site is intact, no signs of infection or drainage, no erythema, patient is asking for refills on norco. Discussed that norco is an opioid and quite habit forming, I did send in a prescription for ultram 50mg, 10 tabs. no refills. [email or web address] Not available 06/15/2021 11:00:47 Reason for Referral None Reported. Problems Name Problem SNOMED Code Status Onset Date Resolution Date Notes Provider Name and Address Organization Details Recorded Time Uterine size for dates discrepa ncy Completed 201508/19/2019 Uterine size-brad e discrepa ncy, third trimeste r; Progress : Stable Added By: Joana Joseph Add to Current Problems : NO ProblemS tatus: Resolve Not Available [facility] 2 11:02:24 Procedur e on genitour inary system Completed 201908/19/2019 Encounte r for surgical aftercar e followin g surgery on the genitour inary system; Progress : Stable Added By: Greetl Hull Add to Current Problems : NO ProblemS tatus: Resolve Not Available [facility] 2 09:54:37 Postoper ative care Completed 201908/19/2019 Encounte r for surgical aftercar e followin g surgery on the genitour inary system; Progress : Stable Added By: Gretel Hull Add to Current Problems : NO ProblemS tatus: Resolve Not Available [facility] 2 09:54:38 History of sexually transmit keisha disease 258690727 Completed 201908/19/2019 Personal history of other infectio us and parasiti c diseases ; Progress : Stable Added By: Jennie Manriquez Add to Current Problems : NO ProblemS tatus: Resolve Not Available [facility] 2 11:02:03 Uterine size for dates discrepa ncy [id number] Completed 201511/12/2018 Uterine size date discrepa ncy, antepart um conditio n or complica tion; Location : None Progress : Stable Added By: Rosibel Hernandez Add to Current Problems : YES ProblemS tatus: Current Uterine size date discrepa ncy, antepart um conditio n or complica tion; Progress : Stable Added By: Rosibel Hernandez Add to Current Problems : NO ProblemS tatus: Resolve Not Available [facility] 2 11:02:02 Gestatio n period, 36 weeks 77927954 Completed 201908/19/2019 36 weeks gestatio n of pregnanc y; Progress : Stable Added By: Joana Joseph Add to Current Problems : NO ProblemS tatus: Resolve Not Available [facility] 2 09:54:39 Sampling of vagina for Papanico laou smear Active 2020 Encounte r for gynecolo gical examinat ion (general ) (routine ) without abnormal findings ; Progress : Stable Added By: Arti Pierson Add to Current Problems : YES ProblemS tatus: Current Not Available [facility] 2 11:02:[address] Concept Completed 201511/02/2015 Encounte r for surveill ance of other contrace ptives; Progress : Stable Added By: Poly Christianson Add to Current Problems : NO ProblemS tatus: Resolve Not Available [facility] 2 09:54:38 Failure of cervical dilation 1729117 Completed 201908/19/2019 Primary inadequa te contract ions; Progress : Stable Added By: Jennie Manriquez Add to Current Problems : NO ProblemS tatus: Resolve Not Available [facility] 2 09:54:37 Uses contrace ption 92019162 Completed 201511/02/2015 Contrace ptive maintena nce; Severity : Moderate Progress : Stable Added By: Poly Christianson Add to Current Problems : NO ProblemS tatus: Resolve Not Available [facility] 1 03:12:11 Gestatio n period, 32 weeks 0212529 Completed 201908/19/2019 32 weeks gestatio n of pregnanc y; Progress : Stable Added By: Jennie Manriquez Add to Current Problems : NO ProblemS tatus: Resolve Not Available [facility] 2 09:54:36 Vaginiti s and vulvovag initis Completed 201509/24/2015 Bacteria l vaginosi s; Severity : Moderate Progress : Stable Added By: Mar Omalley Add to Current Problems : NO ProblemS tatus: Resolve Not Available [facility] 1 03:12:12 Leukorrh ea 728448171 Completed 201509/24/2015 Vaginal Discharg e; Severity : Moderate Progress : Stable Added By: Mar Omalley Add to Current Problems : NO ProblemS tatus: Resolve Not Available [facility] 1 03:12:12 Normal pregnanc y in multigra diana [id number] 4106 Completed 201808/19/2019 Encounte r for supervis ion of other normal pregnanc y, first trimeste r; Progress : Stable Added By: Kishan Mccann Add to Current Problems : NO ProblemS tatus: Resolve; Start Date : 11/13/19 19 Encou nter for supervis ion of other normal pregnanc y, second trimeste r; Progress : Stable Added By: Mejia Dong Add to Current Problems : NO ProblemS tatus: Resolve Encounte r for supervis ion of other normal pregnanc y, third trimeste r; Progress : Stable Added By: Joana Joseph Add to Current Problems : NO ProblemS tatus: Resolve; Start Date : 02/23/20 15 Not Available [facility] 2 09:54:38 Lochia finding Completed 201508/19/2019 Encounte r for routine postpart um follow-u p; Progress : Stable Added By: Huma Calderon Add to Current Problems : NO ProblemS tatus: Resolve Not Available [facility] 2 11:02:02 Furuncle of left axilla [id number] 836691 Completed 201908/19/2019 Furuncle of left axilla; Progress : Stable Added By: Alie Sen Add to Current Problems : NO ProblemS tatus: Resolve Not Available [facility] 2 09:54:39 Gestatio n period, 13 weeks 03070492 Completed 201808/19/2019 13 weeks gestatio n of pregnanc y; Progress : Stable Added By: Ksihan Mccann Add to Current Problems : NO ProblemS tatus: Resolve Not Available [facility] 2 09:54:37 Gestatio n period, 30 weeks 68951578 Completed 201808/19/2019 30 weeks gestatio n of pregnanc y; Progress : Stable Added By: Laura Silverman Add to Current Problems : NO ProblemS tatus: Resolve Not Available [facility] 2 09:54:36 Gestatio n period, 28 weeks 23889637 Completed 201808/19/2019 28 weeks gestatio n of pregnanc y; Progress : Stable Added By: Melanie Remy Add to Current Problems : NO ProblemS tatus: Resolve Not Available [facility] 2 11:02:24 Clinical finding Active 2019 Encounte r for surveill ance of injectab le contrace ptive; Severity : Moderate Progress : Stable Added By: Franco Loera Add to Current Problems : YES ProblemS tatus: Current Not Available [facility] 1 03:12:14 Antenata l screenin g Completed 201908/19/2019 Antenata l screenin g; unspecif ied; Location : None Progress : Stable Added By: Joana Joseph Add to Current Problems : YES ProblemS tatus: Current; Start Date : 02/23/20 15 Encou nter for antenata l screenin g of mother; Progress : Stable Added By: Rosibel Hernandez Add to Current Problems : NO ProblemS tatus: Resolve; Start Date : 02/23/20 15 Encou nter for antenata l screenin g for Streptoc occus B; Progress : Stable Added By: Joana Joseph Add to Current Problems : NO ProblemS tatus: Resolve Encounte r for other specifie d antenata l screenin g; Progress : Stable Added By: Joana Joseph Add to Current Problems : NO ProblemS tatus: Resolve; Start Date : 11/13/19 19 Not Available [facility] 2 09:54:39 Normal pregnanc y 17707905 Active 2014 Medical visit for normal pregnanc y; Location : None Progress : Stable Added By: Joana Joseph Add to Current Problems : YES ProblemS tatus: Current Not Available [facility] 2 09:54:39 Antenata l screenin g for malforma tion Completed 201808/19/2019 Encounte r for antenata l screenin g for malforma tions; Progress : Stable Added By: Bronwyn Velázquez Add to Current Problems : NO ProblemS tatus: Resolve Not Available [facility] 2 09:54:40 Screenin g for malignan t neoplasm of cervix Active 2020 Encounte r for screenin g for malignan t neoplasm of cervix; Progress : Stable Added By: Arti Pierson Add to Current Problems : YES ProblemS tatus: Current Not Available [facility] 2 11:02:02 anatomy study Active 2014 Encounte r for anatomic survey; Location : None Progress : Stable Added By: Rosibel Hernandez Add to Current Problems : YES ProblemS tatus: Current Not Available [facility] 2 11:02:02 Depressi on screenin g Completed 201908/19/2019 Encounte r for screenin g for maternal depressi on; Progress : Stable Added By: Melani Eaton Add to Current Problems : NO ProblemS tatus: Resolve Not Available [facility] 2 11:02:25 Gestatio n period, 20 weeks 48728593 Completed 201808/19/2019 20 weeks gestatio n of pregnanc y; Progress : Stable Added By: Bronwyn Velázquez Add to Current Problems : NO ProblemS tatus: Resolve [facility] 2 09:54:40 Acute vaginiti s 54210393 Completed 201509/24/2015 Acute vaginiti s; Progress : Stable Added By: Mar Omalley Add to Current Problems : NO ProblemS tatus: Resolve Bacteria l vaginosi s; Location : None Progress : Stable Added By: Mar Omalley Add to Current Problems : YES ProblemS tatus: Resolve Vaginal Discharg e; Location : None Progress : Stable Added By: Mar Omalley Add to Current Problems : NO ProblemS tatus: Resolve Not Available [facility] 2 09:54:39 Gestatio n period, 38 weeks 62039402 Completed 201411/12/2018 38 weeks gestatio n of pregnanc y; Progress : Stable Added By: Joana Joseph Add to Current Problems : NO ProblemS tatus: Resolve Not Available [facility] 2 09:54:37 Gestatio n period, 24 weeks 001296409 Completed 201808/19/2019 24 weeks gestatio n of pregnanc y; Progress : Stable Added By: Mejia Dong Add to Current Problems : NO ProblemS tatus: Resolve [facility] 2 09:54:38 wound disrupti on 808126619 Completed 201908/19/2019 Disrupti on of delivery wound; Progress : Stable Added By: Gretel Hull Add to Current Problems : NO ProblemS tatus: Resolve Not Available [facility] 2 11:02:03 Gestatio n period, 37 weeks 56369396 Completed 201908/19/2019 37 weeks gestatio n of pregnanc y; Progress : Stable Added By: Joana Joseph Add to Current Problems : NO ProblemS tatus: Resolve Not Available [facility] 2 11:02:24 Gestatio n period, 17 weeks 67555679 Completed 201808/19/2019 17 weeks gestatio n of pregnanc y; Progress : Stable Added By: Kishan Mccann Add to Current Problems : NO ProblemS tatus: Resolve Not Available [facility] 2 09:54:40 Notes:Contraceptive maintena nce (V25.40) ; OnsetDate: 09/03/2015; ResolvedDate: 11/02/2015; Progress: Stable Added By: Poly Christianson Add to Current Problems: NO ProblemStatus: Resolve Visit for routine follow-up (V24.2) ; OnsetDate: 09/03/2015; ResolvedDate: 06/04/2016; Progress: Stable Added By: Poly Christianson Add to Current Problems: NO ProblemStatus: Resolve Encounter for anatomic survey (V28.81) ; OnsetDate: 03/21/2015; ResolvedDate: 11/12/2018; Progress: Stable Added By: Rosibel Hernandez Add to Current Problems: NO ProblemStatus: Resolve screening; unspecified (V28.9) ; OnsetDate: 02/22/2015; ResolvedDate: 11/12/2018; Progress: Stable Added By: Joana Joseph Add to Current Problems: NO ProblemStatus: Resolve Medical visit for normal (V22.1) ; OnsetDate: 02/22/2015; ResolvedDate: 11/12/2018; Progress: Stable Added By: Joana Joseph Add to Current Problems: NO ProblemStatus: Resolve Problem Notes None recorded. Procedures Surgical History Date Name Laterality Status Provider Name and Address Organization Details Recorded Time 2 Suture/Staple removal completed Estelabienvenido Reyesjemma [facility] IV 05/31/2021 16:35:07 0 [facility] 04/09/2021 17:40:53 Imaging Results None recorded. Procedure Notes None recorded. Medical Equipment None Reported. Allergies No known drug allergies Medications Name Sig Start Date Stop Date Status Note LastModified by Organization Details LastModified Time Colace 100 mg capsule PO BID prn consitpa tion 04/18 completed Colace 100mg Capsules RxNorm: 1335142 Allow Substitu tion: True Refill Denied: No Not Available Not Available Not Available ketoconaz ole 2 % shampoo 06/14 completed Not Available Not Available Not Available fluconazo le 150 mg tablet TAKE 1 TABLET BY MOUTH DIRECTED 06/14 completed Not Available Not Available Not Available hydrocodo ne 5 mg-acetam inophen 325 mg tablet TAKE 1 TABLET BY MOUTH EVERY 6 HOURS NEEDED active Not Available Not Available No t Available metronida zole 500 mg tablet Take 1 tablet(s ) by mouth bid for 7 days 09/03 completed Metronid azole 500mg Tablet RxNorm: 322642 Allow Substitu tion: True Refill Denied: No For Problem: Bacteria l vaginosi s Not Available Not Available Not Available amlodipin e 5 mg tablet active Not Available Not Available Not Available tramadol 50 mg tablet TAKE 1 TABLET BY MOUTH EVERY 6 HOURS NEEDED active Not Available Not Available No t Available ketorolac 10 mg tablet 06/14 completed Not Available Not Available Not Available Vitamin tablet Take 1 tablet(s ) by mouth daily 04/18 completed Multivit patel Tablet Allow Substitu tion: True Refill Denied: No Not Available Not Available Not Available oxycodone -acetamin ophen 5 mg-325 mg tablet TAKE 1 TO 2 TABLETS BY MOUTH EVERY 4 HOURS NEEDED FOR PAIN 06/14 completed Not Available Not Available Not Available Depo-Prov era 150 mg/mL intramusc ular suspensio n inject 1.0 millilit er (150 mg) by intramus cular route once every 3 months. 06/14 completed Depo-Pro vera 150 mg/mL intramus cular Suspensi on RxNorm: 7733124 Allow Substitu tion: True Refill Denied: No Edited by: janet eugene(Mar Johnson) on 10/12/19 Stopped by: janet eugene(Mar Johnson A) on Not Available Not Available Not Available amlodipin e 10 mg tablet TAKE 1 TABLET BY MOUTH EVERY DAY active Not Available Not Available No t Available cephalexi n 500 mg capsule take 1 capsule (500 mg) by oral route 4 times per day 06/14 completed Not Available Not Available Not Available erythromy rich 5 mg/gram (0.5 %) eye ointment 06/14 completed Not Available Not Available Not Available triamcino lone acetonide 0.1 % topical ointment APPLY LOCALLY TO THE AFFECTED AREA TWICE DAILY NEEDED active Not Available Not Available No t Available clobetaso l 0.05 % topical ointment APPLY EXTERNAL LY TO THE AFFECTED AREA TWICE DAILY 06/14 completed Not Available Not Available Not Available clobetaso l 0.05 % scalp solution APPLY TO THE AFFECTED AREA ON SCALP TWICE DAILY active Not Available Not Available No t Available Bactrim DS 800 mg-160 mg tablet take 1 tablet by oral route every 12 hours for 5 days 07/27 completed Bactrim DS 800-160 mg oral tablet RxNorm: 800921 Allow Substitu tion: True Refill Denied: No Edited by: Arti Mercado ) on 07/28/19 Stopped by: Arti Mercado ) on 07/28/19 Not Available Not Available Not Available medroxypr ogesteron e 150 mg/mL intramusc ular syringe inject 1 millilit er (150 mg) by intramus cular route every 3 months 06/14 completed Depo-Pro vera 150 mg/mL intramus cular Syringe RxNorm: 7947611 Allow Substitu tion: True Refill Denied: No Refill DateOccu rred: 10/10/19 Edited by: janet eugene(Mar Johnson A) on 10/12/19 Stopped by: janet eugene(Mar Johnson A) on Not Available Not Available Not Available Prenate DHA take 1 PO daily 02/22 completed Prenate DHA Softgel capsule Allow Substitu tion: True Refill Denied: No Not Available Not Available Not Available Vitals Date Recorded Body height Body mass index (BMI) Body weight Systolic blood pressure Diastolic blood pressure Provider Name and Address Organization Details Last Updated DateTime 04/09/2021 157.48 cm 40.1 kg/m2 91576.73 g 118 mm[Hg] 76 mm[Hg] Laura Read [facility] 2 17:37:26 Date Recorded Body height Body mass index (BMI) Body weight Body temperature Systolic blood pressure Diastolic blood pressure Provider Name and Address Organization Details Last Updated DateTime 2 157.48 cm 39.3 kg/m2 19895.3 6 g 97.7 [degF] 122 mm[Hg] 80 mm[Hg] Estela Wallace [facility] 2 16:37:59 Date Recorded Body height Body mass index (BMI) Body weight Systolic blood pressure Diastolic blood pressure Provider Name and Address Organization Details Last Updated DateTime 06/14/2021 157.48 cm 39.3 kg/m2 62822.36 g 128 mm[Hg] 76 mm[Hg] Destiney Read [facility] 2 16:37:23 Social History Question Answer Notes LastModified by Organizat ion Details LastModified Time Tobacco Smoking Status Never Smoker Destiney Reda [facility], [facility] 06/14/2021 16:38:11 What Is Your Level Of Alcohol Consumption? None [email or web address] Information not available 06/14/2021 How Many Children Do You Have? 3 [email or web address] Information not available 04/09/2021 What Is Your Relationship Status? Single [email or web address] Information not available 04/09/2021 Are You Sexually Active? Yes Information not available 04/09/2021 What Types Of Sporting Activities Do You Participate In? Walking Information not available 04/09/2021 Do You Use Any Illicit Or Recreational Drugs? No [email or web address] Information not available 06/14/2021 Do You Or Have You Ever Used Any Other Forms Of Tobacco Or Nicotine? No [email or web address] Information not available 06/14/2021 Sex: Unknown Functional Status None recorded. Mental Status None recorded. Family History Relationship Description Onset Age of this Age Resolved Age Notes LastModified by Organization Details LastModified Time Maternal Grandmother Hypertensive disorder [email or web address] Not available 03/23 14:14:27 Medical History No medical history recorded. Gynecological History Statement/Question Response Date of Last Pap Smear Current Control Method None Age at Menarche 14 Date of LMP Obstetrics History GPAL:G 3 P 3 0 0 3 Type Value Full Term 3 Living 3 Total 3 Past Encounters Encounter ID Performer Location Encounter Start Date Encounter Closed Date Diagnosis/Indication Diagnosis SNOMED-CT Code Diagnosis ICD10 Code Diagnosis Note [id number] Rosalba Perez MD [facility] [address] [place] [address] 04/09/2021 17:26:49 04/10/2021 10:19:42 Counseling for elective sterilization done [id number] 46057 Z30.2 We reviewed options of salpingect ankit versus tubal ligation and discussed the risks/bene fits of each option, including decreased risk of ovarian cancer with salpingect ankit, and the patient would like to proceed with bilateral salpingect ankit. I recommende d laparoscop ic bilateral salpingect ankit. We reviewed the recommende d procedure in detail, including r/b/a, anticipate d postoperat chris course, and postoperat chris limitation s. We reviewed risks of bleeding; infection; injury to nearby organs including but not limited to bowel, bladder, ureters, nerves, and vessels; risks of postoperat chris VTE, and risks of anesthesia . We also reviewed that bilateral salpingect ankit is permanent sterilizat ion and that she will no longer be able to have children, however we also reviewed that there is a small risk that the procedure may fail, resulting in future intrauteri ne or ectopic . The patient stated understand ing of all of the above, and all questions were answered. She desires to proceed with the procedure as recommende d. Will proceed with surgical scheduling . Patient to follow up two weeks after procedure for post-op visit. [id number] JACKMOIRA MOTLEY CNM [facility] [address] [place] [address] 05/31/2021 16:30:11 06/20/2021 14:59:39 Postoperative visit [id number] Z09 Cleared for normal activity. Has already returned to work. Incisions well healed.Den ies concerns.D iscussed normal return to menses post hormonal contracept ion.RTC PRN needs or annual. [id number] Nalini Evans DO [facility] [address] [place] [address] 06/14/2021 16:33:56 06/17/2021 12:10:43 Postoperative visit [id number] Z09 Health Concerns Section Related Observation LastModified by Organization Detai ls LastModified Time None Recorded Concern Status LastModified by Organization Details LastModified Time None Recorded Advance Directives Directive None Recorded Payers Encounter Date Sequence Insurance Name Policy Number Policy Kamara Covered Member ID Kamara Member ID Guarantor Name 04/09/2021 1 [facility] ON OR AFTER 09/20/20 (MEDICAID REPLACEMENT - HMO) Steven Jenkins [id number] Steven Jenkins 05/31/2021 1 [facility] ON OR AFTER 09/20/20 (MEDICAID REPLACEMENT - HMO) Steven Jenkins [id number] Steven Jenkins 06/14/2021 1 [facility] ON OR AFTER 09/20/20 (MEDICAID REPLACEMENT - HMO) Steven Jenkins [id number] Steven Jenkins Notes Date Note Type Note Provider Name and Address Organization Details Recorded Time 04/09/2021 text/html Steven is here for pre-op for tubal ligation for sterilization. She has three children, c/s followed by followed by repeat c/s. She does not desire any future childbearing. Rosalba Perez MD [address] [place], [address], [facility] 04/22/2021 11:44:11 05/31/2021 text/html Post-OpReported bypatient.Onset/T imin05-16-2021 Quality:BTL Associated Symptoms:incision healing well JACK MOTLEY CNM [address] [place], [address], [facility] [employer] [facility] IV 05/31/2021 16:43:25 06/14/2021 text/html Steven had tubal ligation on 05/16/2021, here due to discomfort and drainage from incision (left side) Nalini Evans DO [address] [facility], [place], [address], [facility] 06/15/2021 11:01:08 OBGyn Episode Ob Episode Information Episode Created Date Number of Fetuses Patient Bloodtype Patient rh Status Prepregnancy Weight lbs Domestic Partner Domestic Partner Phone Father Name Income Tax Consultant Status 06/07/19 22 1 CLOSED Fetus Data First Name Last Name Admitted to NICU Weight (g) Sex Living Outcome Pediatric Complications Fetus ID Race Codes Race Delivery Type 3175.14 4 M [id number] Merrill Calculation Initial Merrill Date Initial Exam Date Initial Exam Provider Initial Ultrasound Date Last Menstrual Period Date Ultra Sound Weeks Gestation 0 Eighteen To Twenty Week Merrill Update Ultra Sound Date Fundal Height At Umbil Quickening Date Ultra Sound Latest Weeks Gestation Final Merrill Confirmed By Final Merrill Confirmed Date Final Merrill Date Ultra Sound Latest Days Gestation 0 0 Menstrual History Last Menstrual Date Menses Monthly On Bcp Conception Prior Menses Frequency Hcg Plus Date Menarche Onset Age Delivery Information Delivery Date Delivery Type Labor Anesthesia Weeks Gestation Incision Type Labor Labor Length Hrs Delivered By Post Complications Tubal Sterilization Discharge Date Comments 2 280 false Discharge Information Feeding Method Contraceptive Method Maternal HG B and HCT Levels Ob Episode Information Episode Created Date Number of Fetuses Patient Bloodtype Patient rh Status Prepregnancy Weight lbs Domestic Partner Domestic Partner Phone Father Name Income Tax Consultant Status 06/07/19 22 1 CLOSED Fetus Data First Name Last Name Admitted to NICU Weight (g) Sex Living Outcome Pediatric Complications Fetus ID Race Codes Race Delivery Type 2721.55 2 M [id number] Merrill Calculation Initial Merrill Date Initial Exam Date Initial Exam Provider Initial Ultrasound Date Last Menstrual Period Date Ultra Sound Weeks Gestation 0 Eighteen To Twenty Week Merrill Update Ultra Sound Date Fundal Height At Umbil Quickening Date Ultra Sound Latest Weeks Gestation Final Merrill Confirmed By Final Merrill Confirmed Date Final Merrill Date Ultra Sound Latest Days Gestation 0 0 Menstrual History Last Menstrual Date Menses Monthly On Bcp Conception Prior Menses Frequency Hcg Plus Date Menarche Onset Age Delivery Information Delivery Date Delivery Type Labor Anesthesia Weeks Gestation Incision Type Labor Labor Length Hrs Delivered By Post Complications Tubal Sterilization Discharge Date Comments 6 [phone] false Discharge Information Feeding Method Contraceptive Method Maternal HG B and HCT Levels Ob Episode Information Episode Created Date Number of Fetuses Patient Bloodtype Patient rh Status Prepregnancy Weight lbs Domestic Partner Domestic Partner Phone Father Name Income Tax Consultant Status 06/07/19 22 1 CLOSED Fetus Data First Name Last Name Admitted to NICU Weight (g) Sex Living Outcome Pediatric Complications Fetus ID Race Codes Race Delivery Type [phone] [id number] Merrill Calculation Initial Merrill Date Initial Exam Date Initial Exam Provider Initial Ultrasound Date Last Menstrual Period Date Ultra Sound Weeks Gestation 0 Eighteen To Twenty Week Merrill Update Ultra Sound Date Fundal Height At Umbil Quickening Date Ultra Sound Latest Weeks Gestation Final Merrill Confirmed By Final Merrill Confirmed Date Final Merrill Date Ultra Sound Latest Days Gestation 0 0 Menstrual History Last Menstrual Date Menses Monthly On Bcp Conception Prior Menses Frequency Hcg Plus Date Menarche Onset Age Delivery Information Delivery Date Delivery Type Labor Anesthesia Weeks Gestation Incision Type Labor Labor Length Hrs Delivered By Post Complications Tubal Sterilization Discharge Date Comments 0 270 true Discharge Information Feeding Method Contraceptive Method Maternal HG B and HCT Levels
--- OUTSIDE RECORDS SUMMARY | 2024-05-01 07:37 | XMS_ITS | Encounter Summary ---
Author Organization [facility] Address [address] [place] [id number] Care Team Providers Care Field Operations Technician Name Role Phone None, Provider MD Primary Care Provider Beckiea ble Encounter Details Date Type Department Care Team (Late st Contact Info) Description 05/12/2019 Hospital Follow-up Call [facility] [place] [address] Destiney Joseph, RN Social History Tobacco Use Types Packs/Day Years Used Date Smoking Tobacco: Former Smokeless Tobacco: Never Alcohol Use Standard Drinks/Week Comments Not Currently 0 (1 standard drink = 0.6 oz pur e alcohol) social Humiliation, Afraid, Rape, and Kick questionnair e Answer Date Recorded Fear of Current or Ex-Partner No Emotionally Abused No 04/05/2019 Physically Abused No 04/05/2019 Sexually Abused No 04/05/2019 Comments No Sex and Gender Information Value Date Recorded Sex Assigned at Not on file Legal Sex Female 8:25 PM CDT Gender Identity Not on file Sexual Orientation Not on file documented as of this encounter Functional Status * RETIRED Are you deaf or do you have serious difficulty hearing Answer Date of Assessment Author Status No 05/09/2019 2:50 AM QUALITY CONTROL LEAD Activ e * RETIRED Are you blind or do you have serious difficulty seeing, even when wearing glasses? Answer Date of Assessment Author Status No 05/09/2019 2:50 AM QUALITY CONTROL LEAD Activ e * Do you have serious difficulty walking or climbing stairs? Answer Date of Assessment Author Status No 05/09/2019 2:50 AM Ann Deras RN Active * Do you have difficulty dressing or bathing? Answer Date of Assessment Author Status No 05/09/2019 2:50 AM Ann Deras RN Active * Because of a physical, mental, or emotional condition, do you have difficulty doing errands alone such as visiting a doctor's office or shopping? Answer Date of Assessment Author Status No 05/09/2019 2:50 AM Ann Deras RN Active documented as of this encounter Mental Status * Because of a physical, mental, or emotional condition, do you have serious difficulty concentrating, remembering, or making decisions? Answer Entry Date Author Status No 05/09/2019 2:50 AM Ann Deras RN Active documented in this encounter Plan of Treatment Not on file documented as of this encounter Visit Diagnoses Not on filedocumented in this encounter Care Teams Field Operations Technician Relationship Specialty Start Date End Date None, Provider, PCP - General 12/05/18 documented as of this encounter
--- OUTSIDE RECORDS SUMMARY | 2024-05-01 07:37 | XMS_ITS | Data Portability ---
Author Organization [facility] RENASherrie Garza Address [address] [facility] [address] Assessment No assessment recorded. Plan of Treatment Reminders Order Date Submit Date Provider Last Modified By Organization Details Last Modified Time Details Appointments ANY 15 2024 08:30A Annie Soler, DO Not available Not available Not available Lab HbA1c (hemoglob in A1c), blood 2023 024 [facility], [address], [place], [address], 11/04/2023 03:36:41 vitamin D, 25-hydrox y, total, serum 2023 024 [facility], [address], [place], [address], 11/04/2023 03:36:43 RPR (rapid plasma reagin), serum 2023 024 [facility], [address], [place], [address], 11/04/2023 03:36:42 HIV 1 + 2, meaningfu l use set 2023 024 [facility], [address], [place], [address], 11/04/2023 03:36:44 HBsAg (hepatiti s B surface Ag), EIA, serum 2023 024 [facility], [address], [place], [address], 11/04/2023 03:36:42 Hepatitis C IgG Ab, qual, serum 2023 024 [facility], [address], [address], [place], [address], 11/04/2023 03:36:40 chlamydia trachomat is + neisseria gonorrhoe ae + trichomon as vaginalis DNA panel, SHANIQUA+probe , unspecifi ed specimen 2023 024 [facility], [address], [address], [place], [address], 11/04/2023 03:36:41 CMP, serum or plasma 2023 024 [facility], [facility] [address], [place], [address], 11/03/2023 03:36:41 CBC w/ auto diff 2023 024 [facility], [facility] [address], [place], [address], 11/03/2023 03:36:42 lipid panel, serum 2023 024 [facility], [facility] [address], [address], [place], [address], 11/03/2023 03:36:41 TSH + free T4, serum 2023 024 [facility], [address], [address], [place], [address], 11/04/2023 03:36:43 RPR (rapid plasma reagin), serum 2024 025 [facility], [address], [address], [place], [address], 04/01/2024 05:37:38 HIV 1 + 2, meaningfu l use set 2024 025 [facility], [address], [place], [address], 04/01/2024 05:37:39 HBsAg (hepatiti s B surface Ag), EIA, serum 2024 025 [facility], [address], [address], [place], [address], 04/01/2024 05:37:37 chlamydia trachomat is + neisseria gonorrhoe ae + trichomon as vaginalis rRNA panel, SHANIQUA+probe 2024 025 [facility], [facility] [address], [place], [address], 04/01/2024 05:37:36 Hepatitis C IgG Ab, qual, serum 2024 025 [facility], [address], [place], [address], 04/01/2024 05:37:35 BMP, serum or plasma 2024 025 [facility], [address], [place], [address], 03/31/2024 03:36:54 Referral sleep medicine referral 2023 024 tommy Not available 11/30/2023 17:46:46 gynecolog ist referral 2024 025 tommy Banegas MD, [address] [facility], [address], [place], [address], 03/31/2024 10:24:59 Procedures None recorded. Surgeries None recorded. Imaging None recorded. Medication Orders metformin 500 mg tablet 2023 024 [facility][id number], [address] [place], [place], [id number], 11/02/2023 11:43:07 citalopra m 10 mg tablet 2023 024 [facility] #[id number], [address] [place], [place], [id number], 11/02/2023 11:39:06 ergocalci ferol (vitamin D2) 1,250 mcg (50,000 unit) capsule 2023 024 [facility] #[id number], [address] [place], [place], [id number], 11/30/2023 12:02:38 spironola ctone 25 mg-hydroc hlorothia zide 25 mg tablet 2023 024 [facility] #[id number], [address] [place], [place], [id number], 11/30/2023 12:02:37 spironola ctone 25 mg-hydroc hlorothia zide 25 mg tablet 2023 024 [facility] #[id number], [address] [place], [place], [id number], 02/23/2024 14:36:58 valacyclo vir 1 gram tablet 2024 025 [facility] #87209, [address] [place], [place], [id number], 03/30/2024 10:25:50 losartan 25 mg tablet 2024 025 [facility][id number], [address] [place], [place], [id number], 03/30/2024 10:21:52 Patient TargetsNo targets recorded. Patient Instructions Encounter Date Encounter Id Patient Instructions Last Modified By Organization Details Last Modified Time 11/02/2023 [id number] Patient Health Questionnaire-2* wandres Not available 11/02/2023 13:25:25 A healthy lifestyle: care instructions Not available 11/02/2023 11:38:06 dash diet: care instructions [email or web address] Not available 11/02/2023 11:38:06 How To Lower Blood Pressure [email or web address] Not available 11/02/2023 11:38:06 11/30/2023 [id number] A healthy lifestyle: care instructions [email or web address] Not available 11/30/2023 11:19:11 12/23/2023 [id number] dash diet: care instructions [email or web address] Not available 12/23/2023 10:48:15 How To Lower Blood Pressure Not available 12/23/2023 10:48:15 A healthy lifestyle: care instructions [email or web address] Not available 12/23/2023 10:48:15 02/23/2024 [id number] dash diet: care instructions [email or web address] Not available 02/23/2024 14:36:50 How To Lower Blood Pressure [email or web address] Not available 02/23/2024 14:36:50 03/30/2024 [id number] A healthy lifestyle: care instructions [email or web address] Not available 03/30/2024 10:21:45 Reason for Referral Sleep Medicine Referral for Snoring Referring Physician: Lizbet Soler, Internal Medicine, Encounter Date: 11/30/2023 Sharepoint Net Developer Referral for Sc reening for malignant neoplasm of cervix Referring Physician: Lizbet Soler, Internal Medicine, Encounter Date: 03/30/2024 Results Created Date Observation Date Name Description Value Unit Range Abnormal Flag Note LastModifiedBy Organization Detail LastModifiedTime 11/02/19 24 11/02/2023 LIPID PANEL cholesterol, total 173 mg/dL 100-19 9 Not Available [facility] Department [address] [place] [address], [address], 11/03/2023 03:36:41 11/02/19 24 11/02/2023 LIPID PANEL triglyceride s 68 mg/dL 0-149 Not Available [facility] Department [address] [place] [address], [address], 11/03/2023 03:36:41 11/02/19 24 11/02/2023 LIPID PANEL HDL cholesterol 67 mg/dL 40-999 Not Available [facility] Department [address] [place] [address], [address], 11/03/2023 03:36:41 11/02/19 24 11/02/2023 LIPID PANEL VLDL cholesterol garcia 14 mg/dL 5-40 Not Available [facility] Department [address] [place] [address], [address], 11/03/2023 03:36:41 11/02/19 24 11/02/2023 LIPID PANEL LDL chol calc (nih) 101 mg/dL 0-99 above high normal Not Available [facility] Department [address] [place] [address], [address], 11/03/2023 03:36:41 11/02/19 24 11/02/2023 COMP. METAB OLIC PANEL (14) glucose 85 mg/dL 70-99 Not Available [facility] Department [address] [place], [address], 11/03/2023 03:36:41 11/02/19 24 11/02/2023 COMP. METAB OLIC PANEL (14) BUN 11 mg/dL 6-20 Not Available [facility] Department [address] [place], [address], 11/03/2023 03:36:41 11/02/19 24 11/02/2023 COMP. METAB OLIC PANEL (14) creatinine 0.64 mg/dL 0.76-1 .27 below low normal Not Available [facility] Department [address] [place] [address], [address], 11/03/2023 03:36:41 11/02/19 24 11/02/2023 COMP. METAB OLIC PANEL (14) eGFR 122 >=60 Units for eGFR value s are mL/mi n/1.7 3 The eGFR Calcu latio n has not been valid ated for patie nts under the age of 18. If test resul ts are displ ayed for a patie nt under the age of 18, disre mitali that value . Not Available [facility] Department [address] [place] [address], [address], 11/03/2023 03:36:41 11/02/19 24 11/02/2023 COMP. METAB OLIC PANEL (14) BUN/creatini ne ratio 17 9-23 Not Available [facility] Department [address] [place] [address], [address], 11/03/2023 03:36:41 11/02/19 24 11/02/2023 COMP. METAB OLIC PANEL (14) sodium 137 mmol/ L 134-14 4 Not Available [facility] Department [address] [place] [address], [address], 11/03/2023 03:36:41 11/02/19 24 11/02/2023 COMP. METAB OLIC PANEL (14) potassium 3.8 mmol/ L 3.5-5. 2 Not Available [facility] Department [address] [place] [address], [address], 11/03/2023 03:36:41 11/02/19 24 11/02/2023 COMP. METAB OLIC PANEL (14) chloride 103 mmol/ L 96-106 Not Available [facility] Department [address] [place] [address], [address], 11/03/2023 03:36:41 11/02/19 24 11/02/2023 COMP. METAB OLIC PANEL (14) carbon dioxide, total 25 mmol/ L 20-29 Not Available [facility] Department [address] [place], [address], 11/03/2023 03:36:41 11/02/19 24 11/02/2023 COMP. METAB OLIC PANEL (14) calcium 9.4 mg/dL 8.7-10 .2 Not Available [facility] Department [address] [place], [address], 11/03/2023 03:36:41 11/02/19 24 11/02/2023 COMP. METAB OLIC PANEL (14) protein, total 7.7 g/dL 6.0-8. 5 Not Available [facility] Department [address] [place], [address], 11/03/2023 03:36:41 11/02/19 24 11/02/2023 COMP. METAB OLIC PANEL (14) albumin 4.4 g/dL 4.0-5. 0 Not Available [facility] Department [address] [place], [address], 11/03/2023 03:36:41 11/02/19 24 11/02/2023 COMP. METAB OLIC PANEL (14) globulin, total 3.3 g/dL 1.5-4. 5 Not Available [facility] Department [address] [place], [address], 11/03/2023 03:36:41 11/02/19 24 11/02/2023 COMP. METAB OLIC PANEL (14) A/G ratio 1.0 1.2-2. 2 below low normal Not Available [facility] Department [address] [place], [address], 11/03/2023 03:36:41 11/02/19 24 11/02/2023 COMP. METAB OLIC PANEL (14) bilirubin, total 0.4 mg/dL 0.0-1. 2 Not Available [facility] Department [address] [place], [address], 11/03/2023 03:36:41 11/02/19 24 11/02/2023 COMP. METAB OLIC PANEL (14) alkaline phosphatase 97 IU/L 44-121 Not Available [facility] Department [address] [place], [address], 11/03/2023 03:36:41 11/02/19 24 11/02/2023 COMP. METAB OLIC PANEL (14) AST (SGOT) 17 IU/L 0-40 Not Available [facility] Department [address] [place], [address], 11/03/2023 03:36:41 11/02/19 24 11/02/2023 COMP. METAB OLIC PANEL (14) ALT (SGPT) 12 IU/L 0-32 Not Available [facility] Department [address] [place] [address], [address], 11/03/2023 03:36:41 11/02/19 24 11/02/2023 CBC WITH DIFFE RENTI AL/PL ATELE T WBC 5.8 x10e3 /uL 3.4-10 .8 Not Available [facility] Department [address] [place], [address], 11/03/2023 03:36:42 11/02/19 24 11/02/2023 CBC WITH DIFFE RENTI AL/PL ATELE T RBC 4.58 x10e6 /uL 3.77-5 .28 Not Available [facility] Department [address] [place], [address], 11/03/2023 03:36:42 11/02/19 24 11/02/2023 CBC WITH DIFFE RENTI AL/PL ATELE T hemoglobin 13.7 g/dL 11.1-1 5.9 Not Available [facility] Department [address] [place], [address], 11/03/2023 03:36:42 11/02/19 24 11/02/2023 CBC WITH DIFFE RENTI AL/PL ATELE T hematocrit 40.8 % 34.0-4 6.6 Not Available [facility] Department [address] [place], [address], 11/03/2023 03:36:42 11/02/19 24 11/02/2023 CBC WITH DIFFE RENTI AL/PL ATELE T MCV 89 fL 79-97 Not Available [facility] Department [address] [place], [address], 11/03/2023 03:36:42 11/02/19 24 11/02/2023 CBC WITH DIFFE RENTI AL/PL ATELE T MCH 29.9 pg 26.6-3 3.0 Not Available [facility] Department [address] [place] [address], [address], 11/03/2023 03:36:42 11/02/19 24 11/02/2023 CBC WITH DIFFE RENTI AL/PL ATELE T MCHC 33.6 g/dL 31.5-3 5.7 Not Available [facility] Department [address] [place], [address], 11/03/2023 03:36:42 11/02/19 24 11/02/2023 CBC WITH DIFFE RENTI AL/PL ATELE T RDW 12.6 % 11.5-1 4.5 Not Available [facility] Department [address] [place], [address], 11/03/2023 03:36:42 11/02/19 24 11/02/2023 CBC WITH DIFFE RENTI AL/PL ATELE T platelets 324 x10e3 /uL 150-45 0 Not Available [facility] Department [address] [place], [address], 11/03/2023 03:36:42 11/02/19 24 11/02/2023 CBC WITH DIFFE RENTI AL/PL ATELE T neutrophils 40 % notest b. Not Available [facility] Department [address] [place], [address], 11/03/2023 03:36:42 11/02/19 24 11/02/2023 CBC WITH DIFFE RENTI AL/PL ATELE T lymphs 52 % notest b. Not Available [facility] Department [address] [place], [address], 11/03/2023 03:36:42 11/02/19 24 11/02/2023 CBC WITH DIFFE RENTI AL/PL ATELE T monocytes 6 % notest b. Not Available [facility] Department [address] [place], [address], 11/03/2023 03:36:42 11/02/19 24 11/02/2023 CBC WITH DIFFE RENTI AL/PL ATELE T eos 1 % notest b. Not Available [facility] Department [address] [place], [address], 11/03/2023 03:36:42 11/02/19 24 11/02/2023 CBC WITH DIFFE RENTI AL/PL ATELE T basos 1 % notest b. Not Available [facility] Department [address] [place], [address], 11/03/2023 03:36:42 11/02/19 24 11/02/2023 CBC WITH DIFFE RENTI AL/PL ATELE T neutrophils (absolute) 2.3 x10e3 /uL 1.4-7. 0 Not Available [facility] Department [address] [place], [address], 11/03/2023 03:36:42 11/02/19 24 11/02/2023 CBC WITH DIFFE RENTI AL/PL ATELE T lymphs (absolute) 3.0 x10e3 /uL 0.7-3. 1 Not Available [facility] Department [address] [place], [address], 11/03/2023 03:36:42 11/02/19 24 11/02/2023 CBC WITH DIFFE RENTI AL/PL ATELE T monocytes(ab solute) 0.3 x10e3 /uL 0.1-0. 9 Not Available [facility] Department [address] [place], [address], 11/03/2023 03:36:42 11/02/19 24 11/02/2023 CBC WITH DIFFE RENTI AL/PL ATELE T eos (absolute) 0.1 x10e3 /uL 0.0-0. 4 Not Available [facility] Department [address] [place], [address], 11/03/2023 03:36:42 11/02/1911/02/2023 CBC WITH DIFFE RENTI AL/PL ATELE T baso (absolute) 0.0 x10e3 /uL 0.0-0. 2 Not Available [facility] Department [address] [place], [address], 11/03/2023 03:36:42 11/02/19 24 11/02/2023 CBC WITH DIFFE RENTI AL/PL ATELE T immature granulocytes 0.2 % notest b. Not Available [facility] Department [address] [place], [address], 11/03/2023 03:36:42 11/02/19 24 11/02/2023 CBC WITH DIFFE RENTI AL/PL ATELE T immature grans (abs) 0.0 x10e3 /uL 0.0-0. 1 Not Available [facility] Department [address] [place], [address], 11/03/2023 03:36:42 11/02/19 24 11/02/2023 CBC WITH DIFFE RENTI AL/PL ATELE T NRBC 0 % 0-0 Not Available [facility] Department [address] [place] [address], [address], 11/03/2023 03:36:42 11/02/19 24 11/03/2023 HCV ANTIB FLORESITA hep C virus Ab NON REACTI VE nonrea ctive HCV antib floresita alone does not diffe renti ate betwe en previ ously resol anahy infec tion and activ e infec tion. Equiv ocal and React chris HCV antib floresita resul ts shoul d be follo wed up with an HCV RNA test to suppo rt the diagn osis of activ e HCV infec tion. Not Available [facility] ([facility]) [address] [facility], [place], [address], 11/04/2023 03:36:40 11/02/1911/03/2023 CT, NG, TRICH VAG BY SHANIQUA chlamydia by SHANIQUA NEGATI VE negati ve Not Available [facility] ([facility]) [address] [place], [address], 11/04/2023 03:36:40 11/02/1911/03/2023 CT, NG, TRICH VAG BY SHANIQUA gonococcus by SHANIQUA NEGATI VE negati ve Not Available [facility] ([facility]) [address] [place], [address], 11/04/2023 03:36:40 11/02/1911/03/2023 CT, NG, TRICH VAG BY SHANIQUA trich vag by SHANIQUA NEGATI VE negati ve Not Available [facility] ([facility]) [address] [place], [address], 11/04/2023 03:36:40 11/02/1911/03/2023 HEMOG LOBIN A1C hemoglobin A1C 5.6 % 4.8-5. 6 Predi abete s: 5.7 - 6.4 Diabe diego: >6.4 Glyce gregoria contr ol for adult s with diabe diego: <7.0 Not Available [facility] ([facility]) [address] [place], [address], 11/04/2023 03:36:41 11/02/1911/03/2023 HBSAG SCREE N HBsAg screen NEGATI VE negati ve Not Available [facility] ([facility]) [address] [facility], [place], [address], 11/04/2023 03:36:42 11/02/19 24 11/03/2023 RPR, RFX QN RPR/C ONFIR M TP RPR NON REACTI VE nonrea ctive Not Available [facility] ([facility]) [address] [facility], [place], [address], 11/04/2023 03:36:42 11/02/19 24 11/03/2023 T4 AND TSH TSH 0.766 uIU/m L 0.450- 4.500 Not Available [facility] ([facility]) [address] [facility], [place], [address], 11/04/2023 03:36:43 11/02/19 24 11/03/2023 T4 AND TSH thyroxine (T4) 7.8 ug/dL 4.5-12 .0 Not Available [facility] ([facility]) [address] [facility], [place], [address], 11/04/2023 03:36:43 11/02/1911/03/2023 VITAM IN D, 25-HY DROXY vitamin D, 25-hydroxy 16.9 NG/mL 30.0-1 00.0 below low normal Vitam in D defic iency has been defin ed by the Insti tute of Medic ine and an Endoc rine Socie ty pract ice guide line as a level of serum 25-OH vitam in D less than 20 ng/mL (1,2) . The Endoc rine Socie ty went on to furth er defin e vitam in D insuf ficie ncy as a level betwe en 21 and 29 ng/mL (2). 1. IOM (Inst itute of Medic ine). 2010. Dieta ry refer ence intak es for calci um and D. Dionicio san [place]: The [facility]ade [facility] Press . 2. Elio leslie MF, Agus tiwari [place], Bisch off-F errar i VERDUZCO, et al. Evalu ation , treat ment, and preve ntion of vitam in D defic iency : an Endoc rine Socie ty clini garcia pract ice guide line. JCEM. 2010; 96(7) :1911 -30. Not Available [facility] ([facility]) [address] [facility], [place], [address], 11/04/2023 03:36:43 11/02/19 24 11/03/2023 HIV AB/P2 4 AG WITH REFLE X HIV Ab/P24 Ag screen NON REACTI VE nonrea ctive HIV-1 /HIV- 2 antib odies and HIV-1 p24 antig en were NOT detec keisha. There is no labor atory evide nce of HIV infec tion. HIV Negat chris Not Available [facility] ([facility]) [address] [facility], [place], [address], 11/04/2023 03:36:44 03/30/19 25 03/30/2024 BASIC METAB OLIC PANEL (8) glucose 106 mg/dL 70-99 above high normal Not Available [facility] Department [address] [place] [address], [address], 03/31/2024 03:36:54 03/30/19 25 03/30/2024 BASIC METAB OLIC PANEL (8) BUN 9 mg/dL 6-20 Not Available [facility] Department [address] [place], [address], 03/31/2024 03:36:54 03/30/19 25 03/30/2024 BASIC METAB OLIC PANEL (8) creatinine 0.87 mg/dL 0.76-1 .27 Not Available [facility] Department [address] [place], [address], 03/31/2024 03:36:54 03/30/19 25 03/30/2024 BASIC METAB OLIC PANEL (8) eGFR 91 >=60 Units for eGFR value s are mL/mi n/1.7 3 The eGFR Calcu latio n has not been valid ated for patie nts under the age of 18. If test resul ts are displ ayed for a patie nt under the age of 18, disre mitali that value . Not Available [facility] Department [address] [place] [address], [address], 03/31/2024 03:36:54 03/30/19 25 03/30/2024 BASIC METAB OLIC PANEL (8) BUN/creatini ne ratio 10 9-23 Not Available [facility] Department [address] [place] [address], [address], 03/31/2024 03:36:54 03/30/19 25 03/30/2024 BASIC METAB OLIC PANEL (8) sodium 140 mmol/ L 134-14 4 Not Available [facility] Department [address] [place] [address], [address], 03/31/2024 03:36:54 03/30/19 25 03/30/2024 BASIC METAB OLIC PANEL (8) potassium 3.9 mmol/ L 3.5-5. 2 Not Available [facility] Department [address] [place] [address], [address], 03/31/2024 03:36:54 03/30/19 25 03/30/2024 BASIC METAB OLIC PANEL (8) chloride 102 mmol/ L 96-106 Not Available [facility] Department [address] [place] [address], [address], 03/31/2024 03:36:54 03/30/19 25 03/30/2024 BASIC METAB OLIC PANEL (8) carbon dioxide, total 27 mmol/ L 20-29 Not Available [facility] Department [address] [place] [address], [address], 03/31/2024 03:36:54 03/30/19 25 03/30/2024 BASIC METAB OLIC PANEL (8) calcium 9.8 mg/dL 8.7-10 .2 Not Available [facility] Department [address] [place] [address], [address], 03/31/2024 03:36:54 03/30/19 25 03/31/2024 INTER PRETA TION: interpretati on: Commen t Not infec keisha with HCV unles s early or acute infec tion is suspe cted (whic h may be delay ed in an immun ocomp romis ed indiv idual ), or other evide nce exist s to indic ate HCV infec tion. Not Available [facility] ([facility]) [address] [place], [address], 04/01/2024 05:37:35 03/30/1903/31/2024 HCV ANTIB FLORESITA RFX TO QUANT PCR HCV Ab NON REACTI VE nonrea ctive Not Available [facility] ([facility]) [address] [place], [address], 04/01/2024 05:37:35 03/30/19 25 04/01/2024 CT, NG, TRICH VAG BY SHANIQUA chlamydia by SHANIQUA NEGATI VE negati ve Not Available [facility] ([facility]) [address] [place], [address], 04/01/2024 05:37:36 03/30/19 25 04/01/2024 CT, NG, TRICH VAG BY SHANIQUA gonococcus by SHANIQUA NEGATI VE negati ve Not Available [facility] ([facility]) [address] [place], [address], 04/01/2024 05:37:36 03/30/19 25 04/01/2024 CT, NG, TRICH VAG BY SHANIQUA trich vag by SHANIQUA NEGATI VE negati ve Not Available [facility] ([facility]) [address] [place], [address], 04/01/2024 05:37:36 03/30/19 25 03/31/2024 HBSAG SCREE N HBsAg screen NEGATI VE negati ve Not Available [facility] ([facility]) [address] [place], [address], 04/01/2024 05:37:37 03/30/19 25 03/31/2024 RPR, RFX QN RPR/C ONFIR M TP RPR NON REACTI VE nonrea ctive Not Available [facility] ([facility]) [address] [facility], [place], [address], 04/01/2024 05:37:38 03/30/19 25 03/31/2024 HIV AB/P2 4 AG WITH REFLE X HIV Ab/P24 Ag screen NON REACTI VE nonrea ctive HIV-1 /HIV- 2 antib odies and HIV-1 p24 antig en were NOT detec keisha. There is no labor atory evide nce of HIV infec tion. HIV Negat chris Not Available [facility] ([facility]) [address] [facility], [place], [address], 04/01/2024 05:37:39 02/17/20 24 02/17/2024 MAMMO , scree lazarus, bilat eral No observ ation record ed. [address], [address], 02/22/2024 13:59:56 Result Notes None recorded. Procedures Surgical History None recorded. Imaging Results Imaging Date Name Status LastModified by Organiz ation Details LastModified Time 02/17/2024 MAMMO, screening, bilateral completed [address], [address], 02/22/2024 13:59:56 Procedure Notes None recorded. Medical Equipment None Reported. Allergies No known drug allergies Medications Name Sig Start Date Stop Date Status Note LastModified by Organization Details LastModified Time metformin 500 mg tablet TAKE 1 TABLET BY MOUTH DAILY active Not Available Not Available No t Available fluconazole 150 mg tablet 11/01 completed Not Available Not Available Not Available citalopram 10 mg tablet TAKE 1 TABLET BY MOUTH EVERY DAY active Not Available Not Available No t Available valacyclovi r 1 gram tablet Take 1 tablet every day by oral route for 90 days. 2024 active Not Available Not Available Not Avai lable spironolact one 25 mg-hydrochl orothiazide 25 mg tablet TAKE 1 TABLET BY MOUTH EVERY DAY active Not Available Not Available No t Available metronidazo le 0.75 % (37.5 mg/5 gram) vaginal gel INSERT ONE APPLICATO RFUL VAGINALLY AT BEDTIME ONCE DAILY active Not Available Not Available No t Available metronidazo le 500 mg tablet TAKE 1 TABLET BY MOUTH TWICE DAILY FOR 7 DAYS 11/01 completed Not Available Not Available Not Available valacyclovi r 500 mg tablet TAKE 1 TABLET BY MOUTH TWICE DAILY active Not Available Not Available No t Available amlodipine 10 mg tablet TAKE 1 TABLET BY MOUTH EVERY DAY 11/29 completed Not Available Not Available Not Available triamcinolo ne acetonide 0.1 % topical ointment APPLY THIN LAYER TOPICALLY TO THE AFFECTED AREA TWICE DAILY 11/01 completed Not Available Not Available Not Available losartan 25 mg tablet Take 1 tablet every day by oral route for 90 days. 2024 active Not Available Not Available Not Avai lable ergocalcife rol (vitamin D2) 1,250 mcg (50,000 unit) capsule TAKE 1 CAPSULE BY MOUTH EVERY WEEK active Not Available Not Available No t Available clobetasol 0.05 % topical ointment APPLY TO THE AFFECTED AREA ON HANDS TWICE DAILY 11/01 completed Not Available Not Available Not Available ibuprofen 600 mg tablet 11/01 completed Not Available Not Available Not Available medroxyprog esterone 150 mg/mL intramuscul ar syringe 11/01 completed Not Available Not Available Not Available Vitals Date Recorded Body height Body mass index (BMI) Body weight Heart rate Body temperature Oxygen saturation Oxygen saturation in Arterial blood by Pulse oximetry Systolic blood pressure Diastolic blood pressure Provider Name and Address Organization Details Last Updated DateTime 4 157.48 cm 39.6 kg/m2 46797.0 3 g 89 /min 97.2 [degF] 99 % 99 % 152 mm[Hg] 93 mm[Hg] Neelam sargent [place] [facility] 4 11:18:59 Date Recorded Body height Body mass index (BMI) Body weight Heart rate Body temperature Oxygen saturation Oxygen saturation in Arterial blood by Pulse oximetry Systolic blood pressure Diastolic blood pressure Provider Name and Address Organization Details Last Updated DateTime 4 157.48 cm 39.9 kg/m2 29624.7 8 g 88 /min 97.2 [degF] 98 % 98 % 157 mm[Hg] 107 mm[Hg] Neelam sargent MA [facility] 4 11:04:59 Date Recorded Body height Body mass index (BMI) Body weight Heart rate Body temperature Oxygen saturation Oxygen saturation in Arterial blood by Pulse oximetry Systolic blood pressure Diastolic blood pressure Systolic blood pressure Diastolic blood pressure Provider Name and Address Organization Details Last Updated DateTime 4 157.48 cm 39.9 kg/m2 62921.1 4 g 76 /min 97.3 [degF] 99 % 99 % 160 mm[Hg] 111 mm[Hg] 144 mm[Hg] 98 mm[Hg] Neelam sargent MA [facility] 4 10:38:56 Date Recorded Body height Body mass index (BMI) Body weight Heart rate Body temperature Oxygen saturation Oxygen saturation in Arterial blood by Pulse oximetry Systolic blood pressure Diastolic blood pressure Provider Name and Address Organization Details Last Updated DateTime 4 157.48 cm 39.6 kg/m2 67069.3 9 g 77 /min 97.2 [degF] 98 % 98 % 162 mm[Hg] 80 mm[Hg] Ilene florentino [facility] 4 14:33:17 Date Recorded Body height Body mass index (BMI) Body weight Heart rate Body temperature Oxygen saturation Oxygen saturation in Arterial blood by Pulse oximetry Systolic blood pressure Diastolic blood pressure Provider Name and Address Organization Details Last Updated DateTime 5 157.48 cm 39.7 kg/m2 93430.5 4 g 87 /min 97.1 [degF] 93 % 93 % 142 mm[Hg] 87 mm[Hg] Ilene florentino [facility] 5 10:18:46 Social History Question Answer Notes LastModified by Organizat ion Details LastModified Time Tobacco Smoking Status Never Smoker CELSA Man, [facility] 11/02/2023 11:20:07 What Was The Date Of Your Most Recent Tobacco Screening? 03/30/2024 [email or web address] Information not available 03/30/2024 Do You Use Any Illicit Or Recreational Drugs? Yes Marijuana [email or web address] Information not available 11/02/2023 Sex: Female Functional Status None recorded. Mental Status None recorded. Family History Nothing Reported. Medical History No medical history recorded. Gynecological HistoryNo gynecological history recorded. Obstetrics History GPAL:G 0 P 0 0 0 0 Immunizations Vaccine Type Date Status Note Provider Nam e and Address Organization Details Recorded Time Influenza, split virus, trivalent, preservative completed Neelam Carrizales on, YURI Burroughs [facility] 12/23/2023 11:22:34 Past Encounters Encounter ID Performer Location Encounter Start Date Encounter Closed Date Diagnosis/Indication Diagnosis SNOMED-CT Code Diagnosis ICD10 Code Diagnosis Note [id number] Lizbet Soler DO [address] [address] 11/02/2023 11:06:28 11/02/2023 13:33:41 Depression screening 661282233 Z13.31 Reviewed Overweight 852915604 E66 .3 Will start metformin lifestyle modificati ons discussed will check hemoglobin A1c. Essential hypertension 34566563 I10 The patient's blood pressure is uncontroll ed, I will arrange for her to get a sleep study will obtain labs today. The patient does not drink significan t amounts of alcohol, and is not on control. The patient has had tubal ligation. If we have to, we can start a water pill, or an JOLENE inhibitor but I would like to get lab work first. Patient will follow-up in 1 month Venereal d isease screening 303709371 Z11.3 Will obtain routine venereal disease testing Anxiety 11351107 F41.9 Reviewed Vitamin D deficiency 347 [address] E55.9 [id number] Lizbet Soler DO [address] [address] 11/30/2023 10:54:28 11/30/2023 17:46:46 Overweight 109093795 E66.3 Will start metformin lifestyle modificati ons discussed will check hemoglobin A1c. Essential hypertension 89069678 I10 Now that we have establishe d that the patient's blood pressure is chronicall y high, and her renal function is good, I will discontinu e amlodipine and start hydrochlor othiazide spironolac tone. I will arrange for sleep study. Patient will come back in 3 to 4 weeks at which time if her blood pressure remains high we will start lisinopril . Vitamin D deficiency 347 [address]608 E55.9 Will give ergocalcif harvey 50,000 units 1 p.o. weekly for 12 weeks Snoring 25835770 R06.83 [id number] Lizbet Soler [facility] [address] [place] [address] 12/23/2023 10:30:42 12/23/2023 15:57:56 Morbid obesity 786301299 E66.01 Continue metformin Essential hypertension 64475904 I10 Eric harp the patient has not been 100% compliant with her meds, and before I add additional medication she needs to resolve herself to compliance . I did discuss compliance with the patient today and she does note that she recognizes the importance and will follow-up in 1 month. Patient notes that she understand s she needs to avoid excessive alcohol being no more than 1 beer, 1 ounce shot of liquor or 4 ounces of red wine a night, not to exceed more than 7 alcoholic beverages in a week and not to drink all of them in 1 night. Also to avoid NSAIDs such as Motrin Aleve Advil and naproxen. Patient was not able to get sleep study due to cost [id number] Lizbet Soler DO [facility] [address] [address] 02/23/2024 14:11:42 02/24/2024 15:13:59 Essential hypertension 55648609 I10 Again the patient is noncomplia nt with her blood pressure meds. I suspect that she will ultimately require 2-3 and hypertensi ves in order to get her pressure under control. Eric harp I cannot seem to get her to take even 1 medication in order to begin the appropriat e titration. Goal blood pressure in this 33-year-ol d patient is less than or equal to 130 over 80 mmHg. The patient voices understand ing, and states that she will take her medication when she presents at next encounter. I will send another prescripti on to make sure that she has all meds on hand, and once she starts taking her medication s as prescribed I can titrate them to our goal. The risks of not taking medication include cardiovasc ular disease stroke, and renal vascular disease at a minimum. Patient voices understand ing will follow-up in 1 month. [id number] [facility] [address] [place] [address] 03/30/2024 10:12:10 03/31/2024 10:24:59 Overweight 486836749 E66.3 Will start metformin lifestyle modificati ons discussed will check hemoglobin A1c. Essential hypertension 83386526 I10 At this time the patient's blood pressure is much better controlled , she is compliant with her meds will check basic metabolic panel today, and also will add losartan 25 mg to her medication regiment. Venereal d isease screening 126822679 Z11.3 Will obtain routine venereal disease testing Genital he rpes simplex type 2 797116721 A60.00 Screening for malignant neoplasm of cervix 928284610 Z12.4 Health Concerns Section Related Observation LastModified by Organization Detai ls LastModified Time None Recorded Concern Status LastModified by Organization Details LastModified Time None Recorded Advance Directives Directive None Recorded Payers Encounter Date Sequence Insurance Name Policy Number Policy Kamara Covered Member ID Kamara Member ID Guarantor Name 11/02/2023 1 [facility] ON OR AFTER 09/20/20 (MEDICAID REPLACEMENT - HMO) Steven Jenkins [id number] Steven Jenkins 11/30/2023 1 [facility] ON OR AFTER 09/20/20 (MEDICAID REPLACEMENT - HMO) Steven Jenkins [id number] Steven Jenkins 12/23/2023 1 [facility] ON OR AFTER 09/20/20 (MEDICAID REPLACEMENT - HMO) Steven Jenkins [id number] Steven Jenkins 02/23/2024 1 [facility] ON OR AFTER 09/20/20 (MEDICAID REPLACEMENT - HMO) Steven Jenkins [id number] Steven Jenkins 03/30/2024 1 [facility] ON OR AFTER 09/20/20 (MEDICAID REPLACEMENT - HMO) Steven Jenkins [id number] Steven Jenkins Notes Date Note Type Note Provider Name and Address Organization Details Recorded Time 11/02/2023 text/html The patient is a pleasant 32-year-old female past medical history of essential hypertension presents to the office new patient encounter. The patient is compliant with her blood pressure medication and takes it as prescribed. Having said that, the patient's blood pressure today is elevated at 152 mmHg. Currently she is on amlodipine 10 mg without significant swelling. The patient does note that she snores, has daytime somnolence and morning headaches. We will work her up for obstructive sleep apnea. The patient has put on weight over the past year so, and it this time is obese and approaching morbid obesity. Currently she denies chest pain palpitations nausea vomiting shortness of breath dizziness orthopnea or PND. The patient notes that she does have increased anxiety some of this is related to bills and things like that. The patient has no suicidal homicidal ideation. Patient has 3 children 2 boys and 1 girl, all are healthy, and all are in school. The patient is gainfully employed, works as a patient rn primary care, at [employer]. Overall the patient psychologically is doing well other than the anxiety but she would like something for this. She has a family history of breast cancer with her grandmother and aunt having breast cancer, but not mother or sister. Patient notes that her mother does get yearly mammograms. See assessment and plan Lizbet Soler DO Attn: [address] [place], [address], [facility] 11/02/2023 11:43:24 11/30/2023 text/html The patient is a very pleasant 32-year-old black female presents follow-up regarding new patient encounter. Last encounter, labs were obtained which demonstrated a low vitamin D level. The patient's vitamin D level is low enough where we should probably replace it with pharmaceutical grade doses. Also, the patient's blood pressure is uncontrolled. We will address that today. See assessment and plan. At this time she denies chest pain palpitations nausea vomiting shortness of breath dizziness orthopnea or PND. Lizbet Soler DO Attn: [address] [place], [address], [facility] 11/30/2023 11:20:19 12/23/2023 text/html The patient is a very pleasant 33-year-old black female presents follow-up regarding essential hypertension. Last count of the patient's blood pressure is 157/107, and today her blood pressure is much better, but not less than 140 over 80 mmHg. Unfortunately the patient's birthday was over the weekend, and the patient did not take her medication because she was drinking and eating and having a good time. She did take her medication this morning which is most likely why her pressure is improved but because she has not been compliant with the med it is not to goal. Before making adjustments to the patient's medication I need to get a sense for where her blood pressure is when she is under the influence and compliant with her meds. I will have her come back regarding this. Also, the patient currently denies chest pain palpitations nausea vomit shortness of breath dizziness orthopnea or PND. Lizbet Soler DO Attn: [address]ing[address] [place], [address], [facility] 12/23/2023 10:48:35 02/23/2024 text/html The patient is a n exceptionally pleasant but very responsible 33-year-old black female presents follow-up regarding essential hypertension. At last encounter, the patient's blood pressure was uncontrolled. At that time the patient noted that she had not been taking her medication. During that encounter I did explain to the patient the importance of taking her medication, and what our goals were. I also explained to her that without taking the medication I could not add additional meds or titrate meds to an effective dose because she was not taking any medications at all. Therefore, if she is not taking medications, I cannot titrate the dose to effect because she is not on them. Today she presents and her blood pressure still grossly uncontrolled. The patient admits that she is not taking her medications. I explained to the patient again that this means that the encounter is fruitless, because I cannot control her blood pressure if she is not taking the med. I explained to her that this is a waste of her money, and my time. However, I am happy to continue assisting the patient in helping her try to see the importance of taking her meds. Therefore I have once again reviewed the importance of taking her meds, why we are trying to treat her hypertension and what this means for her in the future as she ages. The patient voices understanding see assessment and plan. At this time she denies chest pain palpitations nausea vomiting shortness of breath dizziness orthopnea or PND. Lizbet Soler DO Attn: Accounting[address] , [place], [address], [facility] 02/23/2024 14:37:13 03/30/2024 text/html The patient is a pleasant 33-year-old black female presents to the office follow-up regarding essential hypertension. The patient's blood pressure is much better today, but not to goal. I will add additional medication today. Also, the patient would like an STI check, she is sexually active, does not engage in high risk sex but would still like to be checked. I will also make sure that she is up-to-date on gynecologic care. Lizbet Soler DO Attn: [address] [facility], [place], [address], [facility] 03/30/2024 10:26:09 OBGyn Episode No OBEpisode recorded.
--- OUTSIDE RECORDS SUMMARY | 2024-05-01 07:37 | XMS_ITS | Referral Summary ---
Author Organization [facility] Address [address] [place] [address] Care Team Providers Care Machine Overhauler Name Role Phone Unavailable Primary Care Provider Unavailabl e Source Comments [facility],non-owned Affiliates and Associated Physician Practices is amultiple site organization consisting of ambulatory clinics and hospital sitesin [place], [place], [place] and [place]. This disclosure is being madepursuant to the Care Everywhere program and may not contain all information available regarding this patient. Last updated 17.[facility] Allergies No known active allergies Medications * [...] impetiginization 02/10/2020 Abdominal pain 03/13/2019 Overview (03/09/2020): [facility] 03/13/2019 R/O PTL: -No e/o PTL, UTI, [...] TRIVALENT; 6MO+) (IIV3) 02/01/2018 INFLUENZA VACCINE 09/29/2020,12/11/2019 Social History Tobacco Use Types Packs/Day Years [...] Mass Index - - Plan of Treatment Not on file [employer] Employer ATTN CITLALLI BURCH [address] [place] [address]
--- OUTSIDE RECORDS SUMMARY | 2024-05-01 07:38 | XMS_ITS | Encounter Summary ---
Author Organization [facility] Address [facility] [place] [address] Care Team Providers Care Box Car Washer Name Role Phone Unavailable Primary Care Provider Unavailabl e Reason for Visit * Reason Onset Date Comments MEDICATION REFILL 05/12/2022 Encounter Details Date Type Department Care Team (Late st Contact Info) Description 05/12/2022 Refill [facility] [address] [place] [id number] Gladis Walker, [address] [place] [address] MEDICATION REFILL Social History Tobacco Use Types Packs/Day Years Used Date Smoking Tobacco: Never Smokeless Tobacco: Never Sex and Gender Information Value Date Recorded Sex Assigned at Not on file Gender Identity Female 10/03/2018 5:00 PM CDT Sexual Orientation Not on file documented as of this encounter Plan of Treatment Not on file documented as of this encounter Visit Diagnoses Not on filedocumented in this encounter
--- OUTSIDE RECORDS SUMMARY | 2024-05-01 07:38 | XMS_ITS | Encounter Summary ---
Author Organization [facility] Address [address] [place] [address] Care Team Providers Care Welding Foreman Name Role Phone Unavailable Primary Care Provider Unavailabl e Encounter Details Date Type Department Care Team (Late st Contact Info) Description 01/20/2018 Lab Requisition [facility] [address] [address] [place] [address] [place] [address] [place] [address] Social History Tobacco Use Types Packs/Day Years Used Date Smoking Tobacco: Never Assessed Comments Unknown Sex and Gender Information Value Date Recorded Sex Assigned at Not on file Legal Sex Female 11:52 PM CDT Gender Identity Not on file Sexual Orientation Not on file documented as of this encounter Plan of Treatment Not on file documented as of this encounter Procedures Procedure Name Priority Date/Time Associated Diagnosis Comments HEPATITIS B SURFACE AB, QUANT Routine 01/20/2018 1:59 PM CDT documented in this encounter Results * HEPATITIS B SURFACE AB, QUANT (01/20/2018 1:59 PM CDT) HEPATITIS B SURF AB,QN 1,000.0 mlU/mL 01/20/2018 11:01 PM CDT [facility] HEPATITIS B SURFACE AB INTERP Reactive See Interp 01/20/2018 11:01 PM CDT [facility] Blood Venipuncture / Unknown 01/20/2018 1:59 PM CDT 01/20/2018 1:59 PM CDT Narrative [facility] - 01/20/2018 11:01 PM CDT Patient has immunity to Hepatitis B virus. This assay is used to determine immune status to Hepatitis B as greater than or equal to 10 mIU/mL as per CDC guidelines (MMWR:vol 55: RR-16, 2006). Norm Mendez MD CHEMISTRY ORDERABLES Final Res ult [facility] CLIA# [id number] [address] [place] [id number] documented in this encounter Visit Diagnoses Not on filedocumented in this encounter
--- OUTSIDE RECORDS SUMMARY | 2024-05-01 07:38 | XMS_ITS | Clinical Summary ---
Author Organization [facility] Address [address] [place] [address] Phone Care Team Providers Care Java Xml Developer Name Role Phone Unavailable Primary Care Provider Unavailabl e Medications ketorolac tromethamine (TORADOL) 10 mg tablet Take 1 Tablet (10 mg) by mouth every 4 hours as needed for Pain. 20 Tablet None 04/06/2018 Active ondansetron (ZOFRAN) 4 mg Tablet Take 1 Tablet (4 mg) by mouth every 8 hours as needed for Nausea. 12 Tablet None 04/06/2018 Active Immunizations Immunization Administration Dates Next Due Influenza Seasonal Unspecified Formulation IM Social History Tobacco Use Types Packs/Day Years Used Date Smoking Tobacco: Never Assessed Comments Unknown Sex and Gender Information Value Date Recorded Sex Assigned at Not on file Legal Sex Female 11:52 PM CDT Gender Identity Not on file Sexual Orientation Not on file Last Filed Vital Signs Vital Sign Reading Time Taken Comments Blood Pressure 131/84 04/06/2018 11:53 AM ANTIQUE REFINISHER Pulse - - Temperature 37.2 C (99 F) 04/06/2018 9:03 AM ANTIQUE REFINISHER Respiratory Rate 16 04/06/2018 11:53 AM ANTIQUE REFINISHER Oxygen Saturation 99% 04/06/2018 11:53 AM ANTIQUE REFINISHER Inhaled Oxygen Concentration - - Weight 94.8 kg (209 lb) 04/06/2018 9:03 AM ANTIQUE REFINISHER Height 157.5 cm (5' 2 ) 04/06/2018 9:03 AM ANTIQUE REFINISHER Body Mass Index 38.23 04/06/2018 9:03 AM ANTIQUE REFINISHER Plan of Treatment Health Maintenance Due Date Last Done Comments DTAP/TDAP/TD VACCINES (1 - Tdap) 12/19/2011 HEPATITIS B VACCINES (1 of 3 - 19+ 3-dose series) 12/19/2011 CERVICAL CANCER SCREENING 2022 INFLUENZA VACCINE (#1) 2023 02/01/2018 HPV VACCINES Aged Out No longer eligi ble based on patient's age to complete this topic
--- OUTSIDE RECORDS SUMMARY | 2024-05-01 07:38 | XMS_ITS | Clinical Summary ---
Author Organization [facility] Address [facility] [place] [address] Care Team Providers Care Marine Photographer Name Role Phone None, Provider MD Primary Care Provider Unavaila ble Allergies No known active allergies Medications Vit-Fe Fumarate-FA (VOL-PLUS) 27-1 MG Tab Take 1 tablet by mouth daily. 0 05/14/2018 Active ferrous sulfate EC 324 (65 Fe) MG tablet Take 1 tablet (324 mg total) by mouth daily with breakfast. 30 tablet 05/12/2019 Active senna-docusate 8.6-50 MG tablet Take 1 tablet by mouth 2 (two) times daily. 20 tablet 05/11/2019 Active HYDROcodone-acet aminophen 5-325 MG tabletIndication s:Acute Pain < 3 Day Supply Take 1 tablet by mouth every 6 (six) hours as needed. Indications : Acute Pain < 3 Day Supply 12 tablet 06/30/2020 Active amLODIPine 5 MG tablet Take 1 tablet (5 mg total) by mouth daily. 30 tablet 11/23/2020 Active Active Problems Problem Noted Date Diagnosed Date ([facility] 05/09/2019 Resolved Problems Problem Noted Date Diagnosed Date Resolved Date History of delivery affecting ([facility] 04/26/2019 05/11/2019 Vaginitis affecting pregnanc y in third trimester, antepartum ([facility]) 03/06/2019 05/11/19 20 Family History Medical History Relation Comments Other Father Hypertension Maternal Grandmother Relation Status Comments Father Maternal Grandfather Maternal Grandmother Alive Mother Alive Paternal Grandmother Sister Alive Social History Tobacco Use Types Packs/Day Years Used Date Smoking Tobacco: Former Smokeless Tobacco: Never Tobacco Cessation:Counseling Given: Not Answered Alcohol Use Standard Drinks/Week Comments Yes 5 (1 standard drink = 0.6 oz pur [...] Sign Reading Time Taken Comments Blood Pressure 160/104 04/09/2023 9:04 AM CORONER/MEDICAL EXAMINER Pulse 80 04/09/2023 9:04 AM CORONER/MEDICAL EXAMINER Temperature 36.8 C (98.2 F) 04/09/2023 9:04 AM CORONER/MEDICAL EXAMINER Respiratory Rate 16 04/09/2023 9:04 AM CORONER/MEDICAL EXAMINER Oxygen Saturation 100% 04/09/2023 9:04 AM CORONER/MEDICAL EXAMINER Inhaled Oxygen Concentration - - Weight 99.2 kg (218 lb 11.1 oz) 04/09/2023 9:04 AM CORONER/MEDICAL EXAMINER Height 160 cm (5' 3 ) 04/09/2023 9:04 AM CORONER/MEDICAL EXAMINER Body Mass Index 38.74 04/09/2023 9:04 AM CORONER/MEDICAL EXAMINER Plan of Treatment Health Maintenance Due Date Last Done Comments Cervical Cancer Screening Pap Smear (Age 30 to 64) Every 3 Years 1992 Annual Physical 12/19/1995 Hepatitis C 2010 DTaP, Tdap and Td Vaccines (1 - Tdap) 12/19/2011 04/18/1994, 09/17/1993, 05/22/1993, Additional history exists Hepatitis B Vaccines (1 of 3 - 19+ 3-dose series) 12/19/2011 Cervical Cancer Screening Pap with HPV Testing (Age 30 to 64) Every 5 Years 2022 Cervical Cancer Screening with HPV 2022 COVID-19 Vaccine ( - season) 2023 09/26/2020, 09/05/2020 Influenza Adult (#1) 2023 09/29/2020, 12/11/2019, 02/01/2018 HPV Vaccines Aged Out No longer eligi ble based on patient's age to complete this topic Meningococcal B Vaccine Aged Out No l onger eligible based on patient's age to complete this topic Meningococcal Vaccine Aged Out No cesar mickey eligible based on patient's age to complete this topic Pneumococcal Vaccine: Pediatrics (0 to 5 Years) and At-Risk Patients (6 to 64 Years) Aged Out No longer eligible based on patient's age to complete this topic RSV Immunizations Under 20 Months Aged Out No longer eligible based on patient's age to complete this topic Insurance Advance Directives * Full Code (Latest Code Status on File) Date Activated Date Inactivated Comments 05/09/2019 11:04 AM 05/11/2019 5:27 PM * Full Code Date Activated Date Inactivated Comments 05/09/2019 2:27 AM 05/09/2019 9:45 AM * Full Code Date Activated Date Inactivated Comments 04/26/2019 12:17 PM 04/26/2019 10:28 PM Care Teams Marine Photographer Relationship Specialty Start Date End Date None, Provider, PCP - General 12/05/18
--- OUTSIDE RECORDS SUMMARY | 2024-05-01 07:38 | XMS_ITS | Referral Summary ---
Author Organization [facility] Address [address] [place] [address] Care Team Providers Care Mental Health Program Manager Name Role Phone Lizbet Soler DO Primary Care Provider +1- [phone] Encounters Date Type Department Care Team Description 02/17/2024 7:47 AM CROP AND SOIL SCIENTIST - 02/17/2024 11:59 PM CROP AND SOIL SCIENTIST Hospital Encounter [facility] Medical Office [address] [phone] History of lump of left breast Discharge Disposition: Discharge to home or self care 02/17/2024 7:45 AM CROP AND SOIL SCIENTIST - 02/17/2024 11:59 PM CROP AND SOIL SCIENTIST Hospital Encounter [address] [phone] History of lump of left breast Discharge Disposition: Discharge to home or self care from Last 3 Months Allergies No known active allergies Medications amLODIPine (NORVASC) 10 mg tablet Take 10 mg by mouth daily Active traMADoL (ULTRAM) 50 mg tablet Take 1 tablet (50 mg total) by mouth every 4 (four) hours as needed for pain 10 tablet 06/09/2022 Active Active Problems Problem Noted Date Diagnosed Date Abdominal pain 03/13/2019 Overview (03/13/2019): [facility] 03/13/2019 R/O PTL: -No e/o PTL, UTI, [...] belt. PTL precautions reviewed FWB: Reactive NST Immunizations Name Administration Dates Next Due DTP 04/18/1994, 4,05/22/1993,1992 Hep B, Adolescent or Pediatric 7,07/25/1993,03/05/1993,1992 HiB 04/18/1994, 4,05/22/1993,1992 Influenza, Trivalent, IM (MDV) 12/23/2023,2017 Influenza, Unspecified 09/29/2020,12/11/2019 MMR 02/24/1994 OPV 07/25/1993,05/22/1993,03/05/1993 Pfizer SARS-CoV-2 Monovalent Vaccination (12+ Yrs) PURPLE 09/26/2020,09/05/2020 Tdap 08/06/2015 Social History Tobacco Use Types Packs/Day Years Used Date Smoking Tobacco: Never Smokeless Tobacco: Never Alcohol Use Standard Drinks/Week Comments Not Currently 0 (1 standard drink = 0.6 oz pur e alcohol) AUDIT-C Answer Date Recorded Q1: How often do you have a drink containing alc ohol? 2-4 times a month 06/09/2022 Q2: How many drinks containi ng alcohol do you have on a typical day when you are drinking? 3 or 4 06/09/2022 Q3: How often do you have si x or more drinks on one occasion? Monthly 06/09/2022 Personal Safety Answer Date Recorded Have you ever been in or are you currently in a harmful physical or emotional relationship or is someone making you feel afraid or unsafe? Denies 10/10/2023 Comments No Sex and Gender Information Value Date Recorded Sex Assigned at Not on file Legal Sex Female 6:21 AM CROP AND SOIL SCIENTIST Gender Identity Not on file Sexual Orientation Not on file Last Filed Vital Signs Vital Sign Reading Time Taken Comments Blood Pressure 173/122 10/04/2023 8:04 AM CDT Pulse 92 10/10/2023 3:15 PM CDT Temperature 36.5 C (97.7 F) 10/10/2023 3:15 PM CDT Respiratory Rate 22 10/10/2023 3:15 PM CDT Oxygen Saturation 98% 10/10/2023 12: 29 PM CDT Inhaled Oxygen Concentration - - Weight 99.7 kg (219 lb 12.8 oz) 024 12:29 PM CDT Height 157.5 cm (5' 2 ) 10/04/2023 8:04 AM CDT Body Mass Index 40.2 10/04/2023 8:04 AM CDT Plan of Treatment Not on file Medical Devices Implanted Type Area Job Foreman Device Identifier Shelf Expiration Date Model / Serial / Lot Power [place] Partnership Marker Biospy Site Top Hat Shape Senomark [id number] - [id number] Implanted:Qty: 1 on 05/15/2022 at [facility] Clip Left: Breast [employer] Limited Partnership [id number] 10/29/2022 SMARK-GUILHERME ERO-2S / / [id number] Environmental Field Technician [employer] [place] 20ga 5cm Reposition J Curve Wire Centimeter Devin Stabilizer [id number] - [id number] Implanted:Qty: 1 on 06/09/2022 by Alberto Cortez MD at [facility] Left: Breast Environmental [employer] [id number] 05/09/2027 [id number] / / [id number] Ethicon Endo Surgery Ligaclip Extra 6.2mm Ligate Open Large Clip Internal Titanium Latex Free Lt400 - [id number] Implanted:Qty: 1 on 06/09/2022 by Pradip Obando MD at [facility] Left: Breast Eth[employer] Endo Surgery LT400 / / Procedures Procedure Name Priority Date/Time Associated Diagnosis Comments US BREAST LEFT LIMITED Schedule Routine, Read Routine (OP Routine) 02/17/2024 8:34 AM CROP AND SOIL SCIENTIST History of lump of left breast DIAGNOSTIC MAMMOGRAM BILATERAL W ZACK Schedule Routine, Read Routine (OP Routine) 02/17/2024 8:11 AM CROP AND SOIL SCIENTIST History of lump of left breast from Last 3 Months Results * US Breast Left Limited (02/17/2024 8:34 AM CROP AND SOIL SCIENTIST) Anatomical Region Laterality Modality Breast Left Ultrasound 02/17/2024 1:55 PM CROP AND SOIL SCIENTIST Impressions 02/17/2024 1:55 PM CROP AND SOIL SCIENTIST No evidence to suggest malignancy is seen. The patient may return to screening mammography as per ACR guidelines. OVERALL FINAL ASSESSMENT: [id number] Electronically signed by: Christine Londono M.D. Narrative 02/17/2024 1:55 PM CROP AND SOIL SCIENTIST EXAMINATION: BILATERAL DIGITAL DIAGNOSTIC MAMMOGRAM AND DIGITAL BREAST TOMOSYNTHESIS; LEFT BREAST SONOGRAM HISTORY: Follow-up excision of benign phyllodes tumor and biopsy of benign left axillary lymph node COMPARISON: Multiple studies from 2022 TECHNIQUE: Full field digital mammographic views of the bilateral breast(s) were performed, including computer aided detection (CAD) and digital breast tomosynthesis (DBT). Directed ultrasound evaluation of the left breast(s) was performed. BREAST PARENCHYMAL COMPOSITION: The breasts are heterogeneously dense, which may obscure small masses. MAMMOGRAM FINDINGS: There is a biopsy marker in the retroareolar region. There are no suspicious masses. No suspicious calcifications are seen. There is no unexplained architectural distortion. There is no skin thickening seen. There are no mammographically abnormal lymph nodes seen in the axillae or elsewhere. ULTRASOUND FINDINGS: Sonography through the left axilla demonstrates that the lymph node containing the biopsy marker has decreased in cortical thickness somewhat. The maximum dimension is now 6 mm. This has been previously sampled with benign results. Pradip Anderson MD IM MAMMO PROCEDURES Final Result * Diagnostic Mammogram Bilateral W Zack (02/17/2024 8:11 AM CROP AND SOIL SCIENTIST) Anatomical Region Laterality Modality Breast Bilateral Mammography 02/17/2024 1:55 PM CROP AND SOIL SCIENTIST Impressions 02/17/2024 1:55 PM CROP AND SOIL SCIENTIST No evidence to suggest malignancy is seen. The patient may return to screening mammography as per ACR guidelines. OVERALL FINAL ASSESSMENT: [id number] Electronically signed by: Christine Londono M.D. Narrative 02/17/2024 1:55 PM CROP AND SOIL SCIENTIST EXAMINATION: BILATERAL DIGITAL DIAGNOSTIC MAMMOGRAM AND DIGITAL BREAST TOMOSYNTHESIS; LEFT BREAST SONOGRAM HISTORY: Follow-up excision of benign phyllodes tumor and biopsy of benign left axillary lymph node COMPARISON: Multiple studies from 2022 TECHNIQUE: Full field digital mammographic views of the bilateral breast(s) were performed, including computer aided detection (CAD) and digital breast tomosynthesis (DBT). Directed ultrasound evaluation of the left breast(s) was performed. BREAST PARENCHYMAL COMPOSITION: The breasts are heterogeneously dense, which may obscure small masses. MAMMOGRAM FINDINGS: There is a biopsy marker in the retroareolar region. There are no suspicious masses. No suspicious calcifications are seen. There is no unexplained architectural distortion. There is no skin thickening seen. There are no mammographically abnormal lymph nodes seen in the axillae or elsewhere. ULTRASOUND FINDINGS: Sonography through the left axilla demonstrates that the lymph node containing the biopsy marker has decreased in cortical thickness somewhat. The maximum dimension is now 6 mm. This has been previously sampled with benign results. Pradip Anderson MD IM MAMMO PROCEDURES Final Result from Last 3 Months Insurance [facility] [place] [address] [place] [address] Member Subscriber Plan / Payer (Ef fective 2021-Present) Name:Steven Jenkins Relation to Subscriber:Self Name:Steven Jenkins Payer ID:[id number] (NAIC) Group ID:Not on file Type:MEDICAID RISK OTHER Address: ATTN: CLAIMS DEPT [address] [facility] [place] [phone] Advance Directives For more information, please contact: [phone] * Full Code (Latest Code Status on File) Date Activated Date Inactivated Comments 06/09/2022 2:11 PM 06/09/2022 9:02 PM Care Teams Mental Health Program Manager Relationship Specialty Start Date End Date Lizbet Soler DO [address] [place] [id number] PCP - General Internal Medicine 01/01/24
--- OUTSIDE RECORDS SUMMARY | 2024-05-01 07:38 | XMS_ITS | Clinical Summary ---
Author Organization [facility] Address [address] [place] [id number] Care Team Providers Care Drapery Operator Name Role Phone Lizbet Soler DO Primary Care Provider +1- [phone] Allergies No known active allergies Medications amLODIPine (NORVASC) 10 mg tablet Take 10 mg by mouth daily Active traMADoL (ULTRAM) 50 mg tablet Take 1 tablet (50 mg total) by mouth every 4 (four) hours as needed for pain 10 tablet 06/09/2022 Active Active Problems Problem Noted Date Diagnosed Date Abdominal pain 03/13/2019 Overview (03/13/2019): [facility] 03/13/2019 R/O PTL: -No e/o PTL, UTI, [...] belt. PTL precautions reviewed FWB: Reactive NST Encounters Date Type Department Care Team Description 02/17/2024 7:47 AM GRINDER OPERATOR SURFACE TOOL - 02/17/2024 11:59 PM GRINDER OPERATOR SURFACE TOOL Hospital Encounter [facility] Medical Office Bld[facility] [address] [place] [address] [address] [place] [address] History of lump of left breast Discharge Disposition: Discharge to home or self care 02/17/2024 7:45 AM GRINDER OPERATOR SURFACE TOOL - 02/17/2024 11:59 PM GRINDER OPERATOR SURFACE TOOL Hospital Encounter [facility] Medical Office Bldg [facility] [address] [place] [address] History of lump of left breast Discharge Disposition: Discharge to home or self care from Last 3 Months Immunizations Name Administration Dates Next Due DTP 04/18/1994, 4,05/22/1993,1992 Hep B, Adolescent or Pediatric 7,07/25/1993,03/05/1993,1992 HiB 04/18/1994, 4,05/22/1993,1992 Influenza, Trivalent, IM (MDV) 12/23/2023,2017 Influenza, Unspecified 09/29/2020,12/11/2019 MMR 02/24/1994 OPV 07/25/1993,05/22/1993,03/05/1993 Pfizer SARS-CoV-2 Monovalent Vaccination (12+ Yrs) PURPLE 09/26/2020,09/05/2020 Tdap 08/06/2015 Surgical History Surgery Date Site/Laterality Comments SECTION 03/23/2011 - 03/22/2012 SECTION 03/23/2019 - 03/22/2020 BREAST BIOPSY 05/15/2022 Left US GUIDED BIOPSY LYMPH NODE SUPERFICIAL LEFT 05/15/2022 N/A SALPINGECTOMY 04/23/2020 - 05/20/2020 Medical History Medical History Date Comments Hypertension Eczema Social History Tobacco Use Types Packs/Day Years [...] on file Legal Sex Female 6:21 AM GRINDER OPERATOR SURFACE TOOL Gender Identity Not on file Sexual Orientation Not on file Obstetrics History Para Term AB IAB SAB Ectopic Multiple Livin g Live Births 3 2 2 2 2 Date Outcome GA Total Labor Labor/2nd/3rd Weight Sex Type Anes PTL Daphne A1 A5 Name Clin 012 Term M CS-Un spec Living Complications:Cord around ne ck with compression 016 Term M Vag-S pont Living Complications:None Last Filed Vital Signs Vital Sign Reading [...] 10/04/2023 8:04 AM CDT Plan of Treatment Health Maintenance Due Date Last Done Comments Cervical Cancer Screening 1992 Depression Screening 1992 Hepatitis C Screening 1992 Varicella Vaccines (1 of 2 - 13+ 2-dose series) 2005 Regular Well Visit/Exam 18-64 2010 Covid-19 Vaccine ( season) 2023 09/26/2020, 09/05/2020 DTaP/Tdap/Td Vaccine (6 - Td or Tdap) 08/05/2025 08/06/2015, 04/18/1994, 09/17/1993, Additional history exists Influenza Vaccine Completed 12/23/2023, , 12/11/2019, Additional history exists HPV Vaccines Aged Out No longer eligi ble based on patient's age to complete this topic Pneumococcal vaccine <65 Aged Out No longer eligible based on patient's age to complete this topic Medical Devices Implanted Type Area Critical Care Transport Nurse Device Identifier Shelf Expiration Date Model / Serial / Lot Hologic Limited Partnership Marker Biospy Site Top Hat Shape Senomark [id number] - [id number] Implanted:Qty: 1 on 05/15/2022 at [facility] Clip Left: Breast [employer] Limited Partnership [id number] 10/29/2022 RK-GUILHERME ERO-2S / / [id number] Tax Director Technologies [place] 20ga 5cm Reposition J Curve Wire Centimeter Devin Stabilizer [id number] - [id number] Implanted:Qty: 1 on 06/09/2022 by Alberto Cortez MD at [facility] Left: Breast [employer] [id number] 05/09/2027 [id number] / / [id number] Ethicon Endo Surgery Ligaclip Extra 6.2mm Ligate Open Large Clip Internal Titanium Latex Free Lt400 - [id number] Implanted:Qty: 1 on 06/09/2022 by Pradip Obando MD at [facility] Left: Breast Eth[employer] Endo Surgery LT400 / / Procedures Procedure Name Priority Date/Time Associated Diagnosis Comments US BREAST LEFT LIMITED Schedule Routine, Read Routine (OP Routine) 02/17/2024 8:34 AM GRINDER OPERATOR SURFACE TOOL History of lump of left breast DIAGNOSTIC MAMMOGRAM BILATERAL W ZACK Schedule Routine, Read Routine (OP Routine) 02/17/2024 8:11 AM GRINDER OPERATOR SURFACE TOOL History of lump of left breast from Last 3 Months Results * US Breast Left Limited (02/17/2024 8:34 AM GRINDER OPERATOR SURFACE TOOL) Anatomical Region Laterality Modality Breast Left Ultrasound 02/17/2024 1:55 PM GRINDER OPERATOR SURFACE TOOL Impressions 02/17/2024 1:55 PM GRINDER OPERATOR SURFACE TOOL No evidence to suggest malignancy is seen. The patient may return to screening mammography as per ACR guidelines. OVERALL FINAL ASSESSMENT: [id number] Electronically signed by: Christine Londono M.D. Narrative 02/17/2024 1:55 PM GRINDER OPERATOR SURFACE TOOL EXAMINATION: BILATERAL DIGITAL DIAGNOSTIC MAMMOGRAM AND DIGITAL [...] has been previously sampled with benign results. us Pradip Anderson MD IMG MAMMO PROCEDURES Final Result * Diagnostic Mammogram Bilateral W Zack (02/17/2024 8:11 AM GRINDER OPERATOR SURFACE TOOL) Anatomical Region Laterality Modality Breast Bilateral Mammography 02/17/2024 1:55 PM GRINDER OPERATOR SURFACE TOOL Impressions 02/17/2024 1:55 PM GRINDER OPERATOR SURFACE TOOL No evidence to suggest malignancy is seen. The patient may return to screening mammography as per ACR guidelines. OVERALL FINAL ASSESSMENT: [id number] Electronically signed by: Christine Londono M.D. Narrative 02/17/2024 1:55 PM GRINDER OPERATOR SURFACE TOOL EXAMINATION: BILATERAL DIGITAL DIAGNOSTIC MAMMOGRAM AND DIGITAL [...] sampled with benign results. Pradip Anderson MD IMG MAMMO PROCEDURES Final Result from Last 3 Months Insurance [facility] Advance Directives For more information, please contact: [phone] * Full Code (Latest Code Status on File) Date Activated Date Inactivated Comments 06/09/2022 2:11 PM 06/09/2022 9:02 PM Care Teams Drapery Operator Relationship Specialty Start Date End Date Lizbet Soler DO [address] [place] [address] PCP - General Internal Medicine 01/01/24
--- OUTSIDE RECORDS SUMMARY | 2024-05-01 07:39 | XMS_ITS | Encounter Summary ---
Author Organization [facility] Address [address] [place] [address] Care Team Providers Care Rotary Shear Worker Helper Name Role Phone Unavailable Primary Care Provider Unavailabl e Reason for Visit * Reason Onset Date Comments Refill Request 02/19/2023 Encounter Details Date Type Department Care Team (Late st Contact Info) Description 02/19/2023 Telephone [facility] - General Dermatology [address], [facility] [address] [place] [address] Gladis Walker DO [address] [place] [address] Refill Request Social History Tobacco Use Types Packs/Day Years Used Date Smoking Tobacco: Never Smokeless Tobacco: Never Sex and Gender Information Value Date Recorded Sex Assigned at Not on file Gender Identity Female 10/03/2018 5:00 PM CDT Sexual Orientation Not on file documented as of this encounter Miscellaneous Notes * Telephone Encounter - Oma Edwards - 02/19/2023 1:14 PM CST Pt needs a refill for med clobetasol (Temovate) 0.05 % ointment GE WORKER documented in this encounter Plan of Treatment Not on file documented as of this encounter Visit Diagnoses Not on filedocumented in this encounter
[2024-05-01 08:39] VITALS: BP 153/99; PULSE 60; RESP 16; O2SAT 100
== END 2024-05-01 08:57 | disposition home or self-care (01) ==
PROVIDERS: Emergency Provider Emergency Medicine
DX: S63.502A Unspecified sprain of left wrist, initial encounter (principal); S66.912A Strain of unspecified muscle, fascia and tendon at wrist and hand level, left hand, initial encounter; W00.0XXA Fall on same level due to ice and snow, initial encounter
CPT/HCPCS: 73110; 73130; 99283

== ENCOUNTER 2024-11-09 09:58 | Emergency (ER) | payer OTHER, SELFPAY ==
--- NOTE | ~2024-11-09 | XR_ITS ---
EXAMINATION: XR lumbar spine 2-3V DATE: 11/09/2024 11:40 INDICATION: Low back pain radiating down the left leg TECHNIQUE: Anteroposterior and lateral views of the lumbar spine, and cone-down lateral view of the lumbosacral junction were obtained. COMPARISON: None. FINDINGS: 3 mm retrolisthesis L5 on S1. Alignment is otherwise normal. Minimal likely physiologic anterior wedging at T12. Lumbar vertebral body heights are normal. Minimal disc height loss at L4-L5. Remaining lumbar and lower thoracic disc spaces are normal. Mild lower lumbar facet osteoarthritis. Sacrum and bilateral sacroiliac joints are unremarkable. Phlebolith left hemipelvis. IMPRESSION: 1. Mild lower lumbar spondylosis. Reviewed, dictated and finalized at location A.
--- OUTSIDE RECORDS SUMMARY | 2024-11-09 10:12 | XMS_ITS | Clinical Summary ---
Author Organization [facility] Address [address] [place] [id number] Care Team Providers Care Aoc Operations Intelligence Officer Name Role Phone Lizbet Soler Primary Care Provider [phone] Allergies No known active allergies Medications amLODIPine (NORVASC) 10 mg tablet Take 10 mg by mouth daily Active traMADoL (ULTRAM) 50 mg tablet Take 1 tablet (50 mg total) by mouth every 4 (four) hours as needed for pain 10 tablet 3 Active hyoscyamine (LEVSIN) 0.125 mg SL tabletIndications :Urinary Incontinence Take 1 tablet (0.125 mg total) by mouth every 6 (six) hours as needed for cramping 20 tablet 5 Active Active Problems Problem Noted Date Diagnosed Date Abdominal pain 03/13/2019 Overview (03/13/2019): [facility] 03/13/2019 R/O PTL: -No e/o PTL, UTI, [...] Encounters Date Type Department Care Team Description 10/14/2024 8:05 AM CDT - 10/14/2024 10:27 AM CDT Emergency [facility] Emergency Department [address] [place] [address] Angie Mukherjee MD Abdominal pain (Primary Dx) Discharge Disposition: Discharge to home or self care from Last 3 Months Immunizations Immunization Administration Dates Next Due DTP 04/18/1994, 4,05/22/1993,1992 [...] making you feel afraid or unsafe? 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 Gender Identity Not on file Sexual Orientation [...] Sign Reading Time Taken Comments Blood Pressure 161/74 10/14/2024 10:26 AM CDT Pulse 85 10/14/2024 10:26 AM CDT Temperature 37 C (98.6 F) 10/14/2024 10:26 AM CDT Respiratory Rate 16 10/14/2024 10:26 AM CDT Oxygen Saturation 99% 10/14/2024 10:26 AM CDT Inhaled Oxygen Concentration - - Weight 95.8 kg (211 lb 3.2 oz) 10/14/2024 7:38 A M CDT Height 157.5 cm (5' 2) 10/14/2024 7:38 AM CDT Body Mass Index 38.63 10/14/2024 7:38 AM CDT Plan of Treatment Health Maintenance Due Date Last Done Comments Cervical Cancer Screening 1992 Depression Screening 1992 Hepatitis C Screening 1992 Varicella Vaccines (1 of 2 - 13+ 2-dose series) 2005 Regular Well Visit/Exam 18-64 2010 HPV Vaccines (1 - 3-dose SCDM series) 12/19/2019 Covid-19 Vaccine ( season) 2023 09/26/2020, 09/05/2020 Influenza Vaccine (#1) 2024 , 09/29/2020, 12/11/2019, Additional history exists DTaP/Tdap/Td Vaccine (6 - Td or Tdap) 08/05/2025 08/06/2015, 04/18/1994, 09/17/1993, Additional history exists Hepatitis B Screening Completed 11/25/2016 , 07/25/1993, 03/05/1993, Additional history exists Pneumococcal vaccine <65 Aged Out No longer eligible based on patient's age to complete this topic Medical Devices Implanted Type Area Microsoft Net Developer Device Identifier Shelf Expiration Date Model / Serial / Lot Imperative Energy Limited Partnership Marker Biospy Site Top Hat Shape Senomark [id number] - [id number] Implanted:Qty: 1 on 05/15/2022 at [facility] Clip Left: Breast Hologic Limited Partnership [id number] 10/29/2022 RK-GUILHERME ERO-2S / / [id number] Manager [employer] Technologies [place] 20ga 5cm Reposition J Curve Wire Centimeter Devin Stabilizer [id number] - [id number] Implanted:Qty: 1 on 06/09/2022 by Alberto Cortez MD at [facility] Left: Breast Manager [employer] Technologies [id number] 05/09/2027 [id number] / / [id number] Ethicon Endo Surgery Ligaclip Extra 6.2mm Ligate Open Large Clip Internal Titanium Latex Free [id number] - [id number] Implanted:Qty: 1 on 06/09/2022 by Pradip Obando MD at [facility] Left: Breast Ethicon End[employer] Surgery LT400 / / Procedures Procedure Name Priority Date/Time Associated Diagnosis Comments CT ABDOMEN PELVIS W CONTRAST ED 10/14/2024 9:08 AM CDT POCT HCG, URINE Routine 10/14/2024 8:00 AM CDT URINALYSIS, MICROSCOPIC ONLY STAT 10/14/2024 8:00 AM CDT URINALYSIS AND REFLEX TO MICROSCOPIC AND CULTURE STAT 10/14/2024 8:00 AM CDT EGFR STAT 10/14/2024 7:58 AM CDT DIFFERENTIAL AUTO STAT 10/14/2024 7:5 8 AM CDT LIPASE STAT 10/14/2024 7:58 AM CDT COMPREHENSIVE METABOLIC PANEL STAT 10/14/2024 7:58 AM CDT CBC WITH AUTO DIFFERENTIAL STAT 10/14/2024 7:58 AM CDT from Last 3 Months Results * CT Abdomen Pelvis W Contrast (10/14/2024 9:08 AM CDT) Anatomical Region Laterality Modality Body N/A Computed Tomogra phy 10/14/2024 10:0 1 AM CDT Narrative 10/14/2024 10:07 AM CDT EXAM DESCRIPTION: CT ABDOMEN PELVIS W CONTRAST REASON FOR STUDY: Abdominal pain, acute, nonlocalized Pt c/o mid-abdominal pain and nausea. Onset last night at 1999. Denies vomiting or diarrhea. Hx of c-sections and tubes removed TECHNIQUE: CT scan of the abdomen and pelvis performed with intravenous and without oral contrast using helical scanning technique with dynamic intravenous contrast injection. Reconstructed coronal and sagittal MPR images reviewed. All images stored on PACS. Automated exposure control was used as a dose optimization technique for this examination. CONTRAST TYPE/DOSE: 100mL of IOVERSOL 350 MG IODINE/ML INTRAVENOUS SYRINGE injected via intravenous COMPARISON: None FINDINGS: LOWER CHEST: The lung bases are clear. No pleural or pericardial effusion. LIVER: The liver is within normal limits in size. No discrete mass. GALLBLADDER: No stones identified. No wall thickening or inflammatory changes. BILE DUCTS: No intrahepatic or extrahepatic ductal dilatation. SPLEEN: Normal size. No focal lesions. PANCREAS: No identified cystic or solid masses. No significant calcifications. No adjacent inflammation or peripancreatic fluid collections. Pancreatic duct not dilated. ADRENALS: Normal. KIDNEYS/URINARY TRACT: No identified significant cystic or solid masses. No visualized stones. No hydronephrosis or hydroureter. Symmetric enhancement. The urinary bladder is decompressed. This accentuates wall thickness. Subtle perivesical haziness. Consider cystitis in the appropriate clinical setting. GI: Stomach is unremarkable. Small bowel loops are within normal limits in caliber. Mild wall thickening versus decompression of proximal jejunal loops in the left hemiabdomen. Consider enteritis in the appropriate clinical setting. The appendix is normal in caliber. The distal aspect of the appendix is demonstrated within the posterior right hemipelvis posterior to the uterus. The colon reveals some fat within the wall. This is nonspecific but can be seen in the setting of chronic inflammation to include inflammatory bowel disease. Correlate with clinical history. The left hemicolon is decompressed. Equivocal wall thickening versus decompression of the rectum. PERITONEUM: There is no free intraperitoneal air. There is no significant free fluid. No mesenteric lymphadenopathy. RETROPERITONEUM: No retroperitoneal mass or adenopathy. REPRODUCTIVE: No significant abnormality. The ovaries are not well evaluated by CT. VASCULATURE: No abdominal aortic aneurysm. MUSCULOSKELETAL: No significant abnormality. OTHER: No other abnormality. IMPRESSION: 1. Mild wall thickening versus decompression of proximal jejunal loops in the left hemiabdomen. Consider enteritis in the appropriate clinical setting. 2. Equivocal wall thickening versus decompression of the rectum. Correlate with any current symptoms of proctitis. 3. Fat within the wall of the colon, nonspecific but can be seen in the setting of chronic inflammation to include inflammatory bowel disease. Correlate with clinical history. 4. Appendix normal in caliber. 5. Urinary bladder decompressed. Mild perivesical haziness. Correlate with urinalysis to exclude cystitis. THIS IS AN ELECTRONICALLY VERIFIED FINAL REPORT 10/14/2024 10:07 AM - Electronically signed by Shannan Condon M.D. TW: TW Report ID: [id number] Reading Location: [id number] Procedure Note Shannan Condon MD - 10/14/2024 EXAM DESCRIPTION: CT ABDOMEN PELVIS W CONTRAST REASON FOR STUDY: Abdominal pain, acute, nonlocalized Pt c/o mid-abdominal pain and nausea. Onset last night at 1999. Denies vomiting or diarrhea. Hx of c-sections and tubes removed TECHNIQUE: CT scan of the abdomen and pelvis performed with intravenousand without oral contrast using helical scanning technique with dynamic intravenous contrast injection. Reconstructed coronal and sagittal MPRimages reviewed. All images stored on PACS. Automated exposure control was usedas a dose optimization technique for this examination. CONTRAST TYPE/DOSE: 100mL of IOVERSOL 350 MG IODINE/ML INTRAVENOUSSYRINGE injected via intravenous COMPARISON: None FINDINGS: LOWER CHEST: The lung bases are clear. No pleural orpericardial effusion. LIVER: The liver is within normal limits in size. No discrete mass. GALLBLADDER: No stones identified. No wall thickening or inflammatory changes. BILE DUCTS: No intrahepatic or extrahepatic ductal dilatation. SPLEEN: Normal size. No focal lesions. PANCREAS: No identified cystic or solid masses. No significant calcifications. No adjacent inflammation or peripancreatic fluidcollections. Pancreatic duct not dilated. ADRENALS: Normal. KIDNEYS/URINARY TRACT: No identified significant cystic or solid masses.No visualized stones. No hydronephrosis or hydroureter. Symmetricenhancement. The urinary bladder is decompressed. This accentuates wall thickness.Subtle perivesical haziness. Consider cystitis in the appropriate clinicalsetting. GI: Stomach is unremarkable. Small bowel loops are within normal limitsin caliber. Mild wall thickening versus decompression of proximal jejunalloops in the left hemiabdomen. Consider enteritis in the appropriate clinical setting. The appendix is normal in caliber. The distal aspect of the appendix is demonstrated within the posterior right hemipelvis posteriorto the uterus. The colon reveals some fat within the wall. This isnonspecific but can be seen in the setting of chronic inflammation to includeinflammatory bowel disease. Correlate with clinical history. The left hemicolon is decompressed. Equivocal wall thickening versus decompression of therectum. PERITONEUM: There is no free intraperitoneal air. There is nosignificant free fluid. No mesenteric lymphadenopathy. RETROPERITONEUM: No retroperitoneal mass or adenopathy. REPRODUCTIVE: No significant abnormality. The ovaries are not well evaluated by CT. VASCULATURE: No abdominal aortic aneurysm. MUSCULOSKELETAL: No significant abnormality. OTHER: No other abnormality. IMPRESSION: 1. Mild wall thickening versus decompression of proximal jejunal loopsin the left hemiabdomen. Consider enteritis in the appropriate clinicalsetting. 2. Equivocal wall thickening versus decompression of the rectum.Correlate with any current symptoms of proctitis. 3. Fat within the wall of the colon, nonspecific but can be seen in the setting of chronic inflammation to include inflammatory bowel disease. Correlate with clinical history. 4. Appendix normal in caliber. 5. Urinary bladder decompressed. Mild perivesical haziness. Correlatewith urinalysis to exclude cystitis. THIS IS AN ELECTRONICALLY VERIFIED FINAL REPORT 10/14/2024 10:07 AM - Electronically signed by Shannan Condon M.D. TW: LAURA Report ID: [id number] Reading Location: [id number] Angie Mukherjee MD IMG CT PROCEDURES Final Res ult * (ABNORMAL) Urinalysis reflex to microscopic and culture Urine (10/14/2024 8:00 AM CDT) Color, ur Yellow Yellow Comment:Testing performed by : [address] [address] Clarity, ur Clear Clear LAURIE Comment:Testing performed by : [address] [address] Specific gravity, ur 1.031(H) 1.003 - 1.030 LAURIE Comment:Testing performed by : [address] [address] pH, urine 5.5 LAURIE Comment: Interpretive Data U rine pH is affected by diet, medications, systemic acid-base disturbances, and renal tubular function. pH may affect urinary stone formation. For example, urine pH below 6.0 may help reduce the tendency for calcium phosphate stones and pH greater than 6.0 may reduce the tendency for uric acid stone formation. Source: [facility] [employer] Current Interpretive Data was last revised on 2017 Testing performed by: [address] [address] Protein, ur ql Trace(A) Negative LAURIE Comment:Testing performed by : [address] [address] Glucose, ur ql Negative Negative LAURIE Comment:Testing performed by : [address] [address] Ketones, ur Negative Negative LAURIE Comment:Testing performed by : [address] [address] Bilirubin, ur Negative Negative LAURIE Comment:Testing performed by : [address] [address] Blood, ur Negative Negative LAURIE Comment:Testing performed by : [address] [address] Urobilinogen, ur <2.0 <2.0 mg/dL LAURIE WAGGONER Comment:Testing performed by : [address] [place]., [address] Nitrite, ur Negative Negative LAURIE Comment:Testing performed by : [facility], [address] [place] [address]., [address] Leukocyte esterase, ur Negative Negative LAURIE WAGGONER Comment:Testing performed by : [address] [address] UA reflex comment Reflex to microscopic UA will be performed. LAURIE Comment:Testing performed by : [address] [address] Urine 10/14/2024 8:00 AM CDT 10/14/2024 8:14 AM CDT us Angie Mukherjee MD LAB MICROBIOLOGY - GENERAL ORDERABLES Final Result LAURIE WAGGONER [facility] [place] [address] * (ABNORMAL) Urinalysis, microscopic only (10/14/2024 8:00 AM CDT) WBC, ur 0-5 0 - 5 /HPF Comment:Testing performed by : [address] [address] RBC, ur 0-2 0 - 2 /HPF LAURIE Comment:Testing performed by : [address] [address] Epithelial cells, squamous, ur >50(A) 0 - 5 /HPF LAURIE Comment:Testing performed by : [address] [address] Mucous, ur Present(A) LAURIE WAGGONER Comment:Testing performed by : [address] [address] Culture Reflex Comment Reflex conditions for urine culture (WBC >10) not met. LAURIE Comment:Testing performed by : [address] [address] Urine 10/14/2024 8:00 AM CDT 10/14/2024 8:14 AM CDT us Angie Mukherjee MD LAB URINE ORDERABLES Final Result LAURIE [facility] [place] [place] [address] * POCT hCG, urine (10/14/2024 8:00 AM CDT) HCG, ur, POC Negative Negative Lot Number [id number] QC Backgroud Clear Acceptable QC Control Line Acceptable Urine 10/14/2024 8:00 AM CDT Angie Mukherjee MD POINT OF CARE TEST ORDERABL ES Final Result * eGFR (10/14/2024 7:58 AM CDT) Pathologist [facility] eGFR >90 >=60 mL/min/1. 73 m2 Comment: Interpretive Data Reference Interval Normal >/= 90 mL/min/1.73m2 Mildly decreased* 60 - 89 mL/min/1.73m2 Mildly to moderately decreased 45 - 59 mL/min/1.73m2 Moderately to severely decreased 30 - 44 mL/min/1.73m2 Severely decreased 15 - 29 mL/min/1.73m2 Kidney Failure < 15 mL/min/1.73m2 *Relative to young adult level Estimated glomerular filtration rate is determined by the 2020 CKD-EPI equation recommended by the National Kidney Foundation (A Unifying Approach to GFR Estimation: Recommendations of the NKF-ASK Task Force on Reassessing the Inclusion of Race in Diagnosing Kidney Disease, JASN 2020). The CKD-EPI equation should not be used for patients with unstable renal function and has not been validated in children and those over 70. Current interpretive data was last reviewed 2021. Testing performed by: [facility], [address] [place] [address]., [address] Blood 10/14/2024 7:58 AM CDT 10/14/2024 8:14 AM CDT Angie Mukherjee MD LAB BLOOD ORDERABLES Final Result LAURIE [address] [place] [address] Department [place] [address] * Differential, auto (10/14/2024 7:58 AM CDT) Neutrophil abs 3.76 1.50 - 6.50 K/cumm Comment:Testing performed by : [address] [address] Imm gran abs 0.02 0.00 - 0.10 K/cumm LAURIE Comment:Testing performed by : [address] [address] Lymphocyte abs 2.95 0.80 - 3.30 K/cumm LAURIE Comment:Testing performed by : [address] [address] Monocyte abs 0.43 0.20 - 0.80 K/cumm [facility] Comment:Testing performed by : [address] [address] Eosinophil abs 0.10 0.00 - 0.50 K/cumm LAURIE Comment:Testing performed by : [address] [address] Basophil abs 0.03 0.00 - 0.10 K/cumm [facility] Comment:Testing performed by : [address] [address] Neutrophil pct 51.5 % [facility] Comment: Interpretive Data Percent cell count reference ranges are not reported, since discordance with absolute values may lead to misinterpretation of CBC data. Current Interpretive Data was last revised on 2017. Testing performed by: [address] [address] Imm gran pct 0.3 % [facility] Comment: Interpretive Data Percent cell count reference ranges are not reported, since discordance with absolute values may lead to misinterpretation of CBC data. Current Interpretive Data was last revised on 2017. Testing performed by: [address] [address] Lymphocyte pct 40.5 % [facility] Comment: Interpretive Data Percent cell count reference ranges are not reported, since discordance with absolute values may lead to misinterpretation of CBC data. Current Interpretive Data was last revised on 2017. Testing performed by: [address] [address] Monocyte pct 5.9 % LAURIE Comment: Interpretive Data Percent cell count reference ranges are not reported, since discordance with absolute values may lead to misinterpretation of CBC data. Current Interpretive Data was last revised on 2017. Testing performed by: [address] [address] Eosinophil pct 1.4 % LAURIE Comment: Interpretive Data Percent cell count reference ranges are not reported, since discordance with absolute values may lead to misinterpretation of CBC data. Current Interpretive Data was last revised on 2017. Testing performed by: [address] [address] Basophil pct 0.4 % LAURIE Comment: Interpretive Data Percent cell count reference ranges are not reported, since discordance with absolute values may lead to misinterpretation of CBC data. Current Interpretive Data was last revised on 2017. Testing performed by: [address] [address] Blood 10/14/2024 7:58 AM CDT 10/14/2024 8:14 AM CDT Angie Mukherjee MD LAB BLOOD ORDERABLES Final Result [facility] [address] [facility] Department of Laboratories [place], [place] [id number] * (ABNORMAL) CBC with auto differential (10/14/2024 7:58 AM CDT) WBC 7.29 3.80 - 9.90 K/cumm Comment:Testing performed by : [address] [address] Hgb 14.6 11.9 - 15.5 g/dL LAURIE Comment:Testing performed by : [address] [address] Hct 43.7 35.6 - 45.5 % LAURIE Comment:Testing performed by : [address] [place]., [address] Plt 345 150 - 400 K/cumm LAURIE WAGGONER Comment:Testing performed by : [address] [address] MPV 8.9(L) 9.1 - 12.3 fL LAURIE WAGGONER Comment:Testing performed by : [address] [address] RBC 4.95 3.90 - 5.20 M/cumm LAURIE WAGGONER Comment:Testing performed by : [address] [address] MCV 88.3 81.3 - 96.4 fL LAURIE Comment:Testing performed by : [address] [address] MCH 29.5 27.1 - 33.3 pg LAURIE WAGGONER Comment:Testing performed by : [address] [address] MCHC 33.4 32.3 - 35.7 g/dL LAURIE Comment:Testing performed by : [address], [address] RDW CV 12.4 11.1 - 14.9 % LAURIE Comment:Testing performed by : [address] [address] RDW SD 40.2 35.7 - 48.1 fL LAURIE WAGGONER Comment:Testing performed by : [address] [address] NRBC abs 0.00 0.00 - 0.01 K/cumm LAURIE Comment:Testing performed by : [address] [address] Blood Venous blood specimen / Unknown 10/14/2024 7:58 AM CDT 10/14/2024 8:14 AM CDT us Angie Mukherjee MD LAB BLOOD ORDERABLES Final Result LAURIE [address] [facility] Department [place] [address] * Lipase (10/14/2024 7:58 AM CDT) Lipase 29 10 - 99 Units/L Comment:Testing performed by : [address] [address] Blood Venous blood specimen / Unknown 10/14/2024 7:58 AM CDT 10/14/2024 8:14 AM CDT Angie Mukherjee MD LAB BLOOD ORDERABLES Final Result [facility] [address] [facility] Department [place] [address] * (ABNORMAL) Comprehensive metabolic panel (10/14/2024 7:58 AM CDT) Pathologist [facility] Sodium 139 135 - 145 mmol/L Comment:Testing performed by : [address] [address] Potassium, pl 4.3 3.3 - 4.9 mmol/L LAURIE Comment:Testing performed by : [address] [address] Chloride 103 97 - 110 mmol/L LAURIE Comment:Testing performed by : [address] [address] CO2 23 22 - 32 mmol/L LAURIE Comment:Testing performed by : [address] [address] Anion gap 13 2 - 15 mmol/L LAURIE Comment:Testing performed by : [address] [address] BUN 11 6 - 25 mg/dL LAURIE Comment:Testing performed by : [address] [address] Creatinine 0.86 0.60 - 1.10 mg/dL LAURIE Comment:Testing performed by : [address] [address] Glucose 96 70 - 199 mg/dL LAURIE Comment: Interpretive Data Fasting glucose >/= 126 mg/dl is diagnostic for diabetes. Fasting is defined as no caloric intake for at least 8 hours. Fasting glucose between 100 mg/dl to 125 mg/dl is diagnostic of prediabetes. In a patient with classic symptoms of hyperglycemia or hyperglycemic crisis, a random glucose >/= 200 mg/dl is diagnostic for diabetes. In the absence of unequivocal hyperglycemia, results should be confirmed by repeat testing. The classification and Diagnosis of Diabetes Diabetes Care 2021; 46: S19-S40. Current interpretive data was last revised 2022. Testing performed by: [address] [address] Calcium 10.4(H) 8.5 - 10.3 mg/dL LAURIE Comment:Testing performed by : [address] [address] Bilirubin, total 0.6 0.1 - 1.2 mg/dL LAURIE Comment:Testing performed by : [address] [address] Protein, pl 8.6(H) 6.5 - 8.5 g/dL LAURIE Comment:Testing performed by : [address] [address] Albumin 4.4 3.5 - 5.0 g/dL LAURIE Comment:Testing performed by : [address] [address] Alk phos 79 40 - 130 Units/L LAURIE Comment:Testing performed by : [address] [address] ALT 14 7 - 45 Units/L LAURIE Comment:Testing performed by : [address] [address] AST 20 10 - 45 Units/L LAURIE Comment:Testing performed by : [address] [address] Blood 10/14/2024 7:58 AM CDT 10/14/2024 8:14 AM CDT us Angie Mukherjee MD LAB BLOOD ORDERABLES Final Result LAURIE [address] [facility] Department [place] [address] from Last [address] [facility] Member Subscriber Plan / Payer (Ef fective 2019-Present) Name:Aby Jenkinsnathalia Maxwell Relation to Subscriber:Self Name:Aby Jenkinsludwigradha Hans Payer ID:[id number] (NAIC) Group ID:Not on file Type:MEDICAID RISK OTHER Address: [address] [place] [address] [place] [address] [facility] Advance Directives For more information, please contact: [phone] * Full Code (Latest Code Status on File) Date Activated Date Inactivated Comments 06/09/2022 2:11 PM 06/09/2022 9:02 PM Care Teams Aoc Operations Intelligence Officer Relationship Specialty Start Date End Date Lizbet Soler DO [address] [place] [address] PCP - General Internal Medicine 01/01/24
--- OUTSIDE RECORDS SUMMARY | 2024-11-09 10:12 | XMS_ITS | Encounter Summary ---
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 Answer Date of Assessment Author Status No 05/09/2019 2:50 AM MANAGER CLINIC Activ e * Do you have serious [...] on filedocumented in this encounter Care Teams Consultant Technology Relationship Specialty Start Date End Date None, Provider, PCP - General 12/05/18 documented as of this encounter
--- OUTSIDE RECORDS SUMMARY | 2024-11-09 10:12 | XMS_ITS | Clinical Summary ---
Author Organization [facility] Address Counts include 234 beds at the [facility] [place] [address] Care Team Providers Care Olericulture Professor Name Role Phone None, Provider MD Primary [...] Active Problems Problem Noted Date Diagnosed Date ([facility]) 05/09/2019 Resolved Problems Problem Noted Date Diagnosed Date Resolved Date History of delivery affecting ([facility]) 04/26/2019 05/11/2019 Vaginitis affecting pregnanc y in third trimester, antepartum ([facility]) 03/06/2019 05/11/19 20 Family History Medical History [...] Comments Blood Pressure 160/104 04/09/2023 9:04 AM PURCHASING ADMINISTRATOR Pulse 80 04/09/2023 9:04 AM PURCHASING ADMINISTRATOR Temperature 36.8 C (98.2 F) 04/09/2023 9:04 AM PURCHASING ADMINISTRATOR Respiratory Rate 16 04/09/2023 9:04 AM PURCHASING ADMINISTRATOR Oxygen Saturation 100% 04/09/2023 9:04 AM PURCHASING ADMINISTRATOR Inhaled Oxygen Concentration - - Weight 99.2 kg (218 lb 11.1 oz) 04/09/2023 9:04 AM PURCHASING ADMINISTRATOR Height 160 cm (5' 3) 04/09/2023 9:04 AM PURCHASING ADMINISTRATOR Body Mass Index 38.74 04/09/2023 9:04 AM PURCHASING ADMINISTRATOR Plan of Treatment Health Maintenance Due Date Last Done Comments Cervical Cancer Screening Pap Smear (Age 30 to 64) Every 3 Years 1992 Annual Physical 12/19/1995 Hepatitis C 2010 DTaP, Tdap and Td Vaccines (1 - Tdap) 12/19/2011 04/18/1994, 09/17/1993, 05/22/1993, Additional history exists Hepatitis B Vaccines (1 of 3 - 19+ 3-dose series) 12/19/2011 HPV Vaccines (1 - 3-dose SCDM series) 12/19/2019 Cervical Cancer Screening Pap with HPV Testing (Age 30 to 64) Every 5 Years 2022 Cervical Cancer Screening with HPV 2022 COVID-19 Vaccine ( - season) 2023 09/26/2020, 09/05/2020 Meningococcal B Vaccine Aged Out No l onger eligible based on patient's age to complete this topic Meningococcal Vaccine Aged Out No cesar mickey eligible based on patient's age to complete this topic Pneumococcal Vaccine: Pediatrics (0 to 5 Years) and At-Risk Patients (6 to 49 Years) Aged Out No longer eligible based [...] 12:17 PM 04/26/2019 10:28 PM Care Teams Olericulture Professor Relationship Specialty Start Date End Date None, Provider, PCP - General 12/05/18
[2024-11-09 10:14] VITALS: BP 165/92; PULSE 84; RESP 15; TEMP 36.3; O2SAT 100
--- NOTE | 2024-11-09 11:13 | ED_ITS ---
HPI - Back Pain/Injury General Chief Complaint: Back Pain/Injury Stated Complaint: flank pain that radiates down leg Time Seen by Provider: 11/09/24 10:33 Source: patient Mode of arrival: ambulatory Limitations: no limitations History of Present Illness HPI Narrative: This is a 33 year old female that presents to the ER for left sided low back pain. Radiation down the left leg. Reports no recent injuries or trauma to the back. She was prescribed muscle relaxers by her PCP, but these take her sleepy and she is unable to take them at work. Denies numbness, weakness. Related Data Home Medications ?Medication ?Instructions ?Recorded ?Confirmed ?Last Taken ?Type cyclobenzaprine 10 mg tablet 10 mg PO TID 11/09/24 Un known History losartan 25 mg tablet 25 mg PO DAILY 11/09/24 Unk nown History spironolactone 25 mg tablet 25 mg PO DAILY 11/09/24 U nknown History valacyclovir 1 gram tablet 1,000 mg PO DAILY 11/09/24 Unknown History Allergies Allergy/AdvReac Type Severity Reaction Status Date / Time No Known Allergies Allergy Verified 05/03/24 07:49 Review of Systems Review of Systems: All systems reviewed & are unremarkable except as noted in HPI and below PMFSH Past Medical History Medical History (Updated 11/09/24 @ 12:38 by Joellen Kiran PA-C) Hypertension Exam Narrative: GENERAL: Well-appearing, well-nourished, and in no acute distress. HEAD: Normocephalic, atraumatic. EYES: EOMI. CHEST: Clear to auscultation. No respiratory distress. No wheezes rales or rhonchi HEART: Regular rate and rhythm. No murmur heard. Normal peripheral pulses. BACK: No midline spinal tenderness EXTREMITIES: Normal range of motion. No edema. SKIN: Warm, dry, no rash. NEURO: No focal deficits. Alert and oriented x3. Normal gait PSYCH: Normal mood and affect Course Course Emergency Course: Patient updated on her workup and agrees with plan of care Vital Signs Vital signs: Vital Signs Temperature 97.3 F L 11/09/24 10:14 Pulse Rate 84 11/09/24 10:14 Respiratory Rate 15 11/09/24 10:14 Blood Pressure 165/92 H 11/09/24 10:14 Pulse Oximetry 100 11/09/24 10:14 Oxygen Delivery Room Air 11/09/24 10:14 Temperature 97.3 F L 11/09/24 10:14 Pulse Rate 84 11/09/24 10:14 Respiratory Rate 15 11/09/24 10:14 Blood Pressure 165/92 H 11/09/24 10:14 Pulse Oximetry 100 11/09/24 10:14 Oxygen Delivery Room Air 11/09/24 10:14 MDM - Back Pain/Injury MDM Narrative Medical decision making narrative: Patient presents the emergency department for left lower back pain. Radiation in the left leg. She is afebrile and nontoxic appearing. Her vitals are stable. She is neurologically intact. test is negative. Lumbar spine x-ray shows mild lower lumbar spondylosis. Patient updated on her workup and agrees with plan of care. She is to follow up with primary provider. She was given warnings to return to the ER Differential Diagnosis Differential diagnosis: Likely lumbar radiculopathy, sciatica and strain of lumbar region Lab Data Attestation: I reviewed the patient's lab results. Labs: Lab Results 11/09/24 Range/Units 11:12 POC Urine HCG, Qual Negative (Negative) Imaging Data Radiologist's impression: ITS Impressions Lumbar Spine X-Ray 11/09/24 11:50 IMPRESSION: 1. Mild lower lumbar spondylosis. Critical Care Time Critical Care Time Critical Care Time: No Discharge Plan Discharge Clinical Impression: Sciatica Qualifiers: Laterality: left Qualified Code(s): M54.32 - Sciatica, left side Patient Disposition: Home Condition: Stable Instructions: Sciatica (ED) Additional Instructions: Return to the ER if you experience weakness, numbness, bowel/bladder incontinence, or any other symptoms that are concerning to you Rest, use ice/heat, take anti-inflammatories (Aleve, Ibuprofen, Naproxen, etc) or Tylenol as needed for pain as well as muscle relaxer (Flexeril) as needed for pain. Muscle relaxers can make you drowsy, do not drive if you take this. Take steroid taper as prescribed. Lidocaine patch to the area of pain as needed Follow up with your primary care doctor Patient Language: Indonesian Prescriptions: New methylprednisolone 4 mg tablets,dose pack See Rx Instructions .ROUTE .COMPLEX Qty: 21 0RF Rx Instructions: orally per package directions lidocaine 5 % adhesive patch,medicated 1 patch topical DAILY Qty: 15 0RF Rx Instructions: leave on most painful area for up to 12 hrs No Action cyclobenzaprine 10 mg tablet 10 mg PO TID valacyclovir 1 gram tablet 1,000 mg PO DAILY spironolactone 25 mg tablet 25 mg PO DAILY losartan 25 mg tablet 25 mg PO DAILY Follow-up/Referrals: UNKNOWN,DOCTOR [Primary Care Provider]
[2024-11-09 11:14] LABS: BEDSIDEPREGUCG Negative (Negative)
[2024-11-09] MEDS: ACETAMINOPHEN 500 MG TABLET 1000 MG PO (11:18)
[2024-11-09] MEDS: KETOROLAC 30 MG/ML VIAL (*BKC) IM (11:19)
--- OUTSIDE RECORDS SUMMARY | 2024-11-09 11:21 | XMS_ITS | Encounter Summary ---
Author Organization [facility] Address [address] [place] [address] Care Team Providers Care Resident In Diagnostic Radiology Name Role Phone Unavailable Primary Care Provider Unavailabl e Encounter Details Date Type Department Care Team (Late st Contact Info) Description 01/20/2018 Lab Requisition [facility] [address] [facility] [address] [facility] [address] [place] [address] [place] [address] [facility] [address] [place] [address] Social History Tobacco Use Types [...] 1,000.0 mlU/mL 01/20/2018 11:01 PM CDT [facility] HEPATITIS B SURFACE AB INTERP Reactive See Interp 01/20/2018 11:01 PM CDT [facility] Blood Venipuncture / Unknown 01/20/2018 1:59 PM CDT 01/20/2018 1:59 PM CDT Narrative [facility] - 01/20/2018 11:01 PM CDT Patient has immunity to Hepatitis B virus. This assay is used to determine immune status to Hepatitis B as greater than or equal to 10 mIU/mL as per CDC guidelines (MMWR:vol 55: RR-16, 2006). Norm Mendez MD CHEMISTRY ORDERABLES Final Res ult [facility] CLIA# [id number] [address] [place] [id number] documented in this encounter Visit Diagnoses Not on filedocumented in this encounter
--- OUTSIDE RECORDS SUMMARY | 2024-11-09 11:21 | XMS_ITS | Clinical Summary ---
Author Organization [facility] Address [facility] [place] [address] Care Team Providers Care Electric Meter Repairer Apprentice Name Role Phone None, Provider MD Primary [...] Active Problems Problem Noted Date Diagnosed Date ([facility] 05/09/2019 Resolved Problems Problem Noted Date Diagnosed Date Resolved Date History of delivery affecting ([facility] 04/26/2019 05/11/2019 Vaginitis affecting pregnanc y in third trimester, antepartum ([facility]) 03/06/2019 05/11/19 20 Family History Medical History [...] Comments Blood Pressure 160/104 04/09/2023 9:04 AM GRANITE CHIP TERRAZZO FINISHER Pulse 80 04/09/2023 9:04 AM GRANITE CHIP TERRAZZO FINISHER Temperature 36.8 C (98.2 F) 04/09/2023 9:04 AM GRANITE CHIP TERRAZZO FINISHER Respiratory Rate 16 04/09/2023 9:04 AM GRANITE CHIP TERRAZZO FINISHER Oxygen Saturation 100% 04/09/2023 9:04 AM GRANITE CHIP TERRAZZO FINISHER Inhaled Oxygen Concentration - - Weight 99.2 kg (218 lb 11.1 oz) 04/09/2023 9:04 AM GRANITE CHIP TERRAZZO FINISHER Height 160 cm (5' 3) 04/09/2023 9:04 AM GRANITE CHIP TERRAZZO FINISHER Body Mass Index 38.74 04/09/2023 9:04 AM GRANITE CHIP TERRAZZO FINISHER Plan of Treatment Health Maintenance Due Date [...] 12:17 PM 04/26/2019 10:28 PM Care Teams Electric Meter Repairer Apprentice Relationship Specialty Start Date End Date None, Provider, PCP - General 12/05/18
--- OUTSIDE RECORDS SUMMARY | 2024-11-09 11:21 | XMS_ITS | Clinical Summary ---
Author Organization [facility] Address [address] [place] [address] Phone Care Team Providers Care Refrigerator Room Clerk Name Role Phone Unavailable Primary Care Provider [...] Comments Blood Pressure 131/84 04/06/2018 11:53 AM WAGE CONCILIATOR Pulse - - Temperature 37.2 C (99 F) 04/06/2018 9:03 AM WAGE CONCILIATOR Respiratory Rate 16 04/06/2018 11:53 AM WAGE CONCILIATOR Oxygen Saturation 99% 04/06/2018 11:53 AM WAGE CONCILIATOR Inhaled Oxygen Concentration - - Weight 94.8 kg (209 lb) 04/06/2018 9:03 AM WAGE CONCILIATOR Height 157.5 cm (5' 2) 04/06/2018 9:03 AM WAGE CONCILIATOR Body Mass Index 38.23 04/06/2018 9:03 AM WAGE CONCILIATOR Plan of Treatment Health Maintenance Due Date Last Done Comments HPV VACCINES (1 - 3-dose series) 12/19/2007 DTAP/TDAP/TD VACCINES (1 - Tdap) 12/19/2011 HEPATITIS B VACCINES (1 of 3 - 19+ 3-dose series) 11/22 HPV/Cotest (21-29) 2013 CERVICAL CANCER SCREENING 2022 HPV/Cotest (30-65) 2022 PAP SMEAR 2022 INFLUENZA VACCINE (#1) 2024 02/01/2018
--- OUTSIDE RECORDS SUMMARY | 2024-11-09 11:21 | XMS_ITS | Clinical Summary ---
Author Organization [facility] Address [address] [place] [address] Care Team Providers Care Nurse First Aid Name Role Phone Lizbet Soler Primary Care Provider [phone]- [phone] Allergies No known active allergies Medications amLODIPine [...] Diagnosed Date Abdominal pain 03/13/2019 Overview (03/13/2019): [facility] 03/13/2019 R/O PTL: -No e/o [...] CDT - 10/14/2024 10:27 AM CDT Emergency [facility] Emergency Department [address] [place] [address] Angie Mukherjee MD Abdominal pain (Primary Dx) [...] on file Legal Sex Female 6:21 AM DISINTEGRATOR Gender Identity Not on file Sexual Orientation [...] this topic Medical Devices Implanted Type Area Legal Librarian Device Identifier Shelf Expiration Date Model / Serial / Lot Digital [employer] Partnership Marker Biospy Site Top Hat Shape Senomark [id number] - [id number] Implanted:Qty: 1 on 05/15/2022 at [facility] Clip Left: Breast Hologic Limited Partnership [id number] 10/29/2022 RK-GUILHERME ERO-2S / / [id number] Plating [employer] [place] 20ga 5cm Reposition J Curve Wire Centimeter Devin Stabilizer [id number] - [id number] Implanted:Qty: 1 on 06/09/2022 by Alberto Cortez MD at [facility] Left: Breast Plating [employer] [id number] 05/09/2027 [id number] / / [id number] [employer] Endo Surgery Ligaclip Extra 6.2mm Ligate Open Large Clip Internal Titanium Latex Free [id number] - [id number] Implanted:Qty: 1 on 06/09/2022 by Pradip Obando MD at [facility] Left: Breast [employer] Endo Surgery [...] Shannan Condon M.D. TW: TW Report ID: [id number] Reading Location: [id number] Procedure Note Shannan Condon MD - 10/14/2024 [...] Shannan Condon M.D. TW: LAURA Report ID: [id number] Reading Location: [id number] Angie Mukherjee MD IMG CT PROCEDURES Final Res ult * (ABNORMAL) Urinalysis reflex to microscopic and culture Urine (10/14/2024 8:00 AM CDT) Color, ur Yellow Yellow Comment:Testing performed by : [address] [address] Clarity, ur Clear Clear LAURIE Comment:Testing performed by : [address] [address] Specific gravity, ur 1.031(H) 1.003 - 1.030 LAURIE Comment:Testing performed by : [address] [address] pH, urine 5.5 LAURIE Comment: Interpretive Data U rine pH is affected by diet, medications, systemic acid-base disturbances, and renal tubular function. pH may affect urinary stone formation. For example, urine pH below 6.0 may help reduce the tendency for calcium phosphate stones and pH greater than 6.0 may reduce the tendency for uric acid stone formation. Source: [facility] [employer] Current Interpretive Data was last revised on 2017 Testing performed by: [address] [address] Protein, ur ql Trace(A) Negative LAURIE Comment:Testing performed by : [address] [address] Glucose, ur ql Negative Negative LAURIE Comment:Testing performed by : [address] [address] Ketones, ur Negative Negative LAURIE Comment:Testing performed by : [address] [address] Bilirubin, ur Negative Negative LAURIE Comment:Testing performed by : [address] [address] Blood, ur Negative Negative LAURIE Comment:Testing performed by : [address] [address] Urobilinogen, ur <2.0 <2.0 mg/dL LAURIE WAGGONER Comment:Testing performed by : [address] [place]., [address] Nitrite, ur Negative Negative LAURIE Comment:Testing performed by : [facility], [address] [place] [address]., [address] Leukocyte esterase, ur Negative Negative LAURIE WAGGONER Comment:Testing performed by : [address] [address] UA reflex comment Reflex to microscopic UA will be performed. LAURIE Comment:Testing performed by : [address] [address] Urine 10/14/2024 8:00 AM CDT 10/14/2024 8:14 AM CDT us Angie Mukherjee MD LAB MICROBIOLOGY - GENERAL ORDERABLES Final Result LAURIE WAGGONER [facility] [place] [address] * (ABNORMAL) Urinalysis, microscopic only (10/14/2024 8:00 AM CDT) WBC, ur 0-5 0 - 5 /HPF Comment:Testing performed by : [address] [address] RBC, ur 0-2 0 - 2 /HPF LAURIE Comment:Testing performed by : [address] [address] Epithelial cells, squamous, ur >50(A) 0 - 5 /HPF LAURIE Comment:Testing performed by : [address] [address] Mucous, ur Present(A) LAURIE WAGGONER Comment:Testing performed by : [address] [address] Culture Reflex Comment Reflex conditions for urine culture (WBC >10) not met. LAURIE Comment:Testing performed by : [address] [address] Urine 10/14/2024 8:00 AM CDT 10/14/2024 8:14 AM CDT us Angie Mukherjee MD LAB URINE ORDERABLES Final Result LAURIE [facility] [employer] [place] [address] * POCT hCG, urine (10/14/2024 8:00 AM CDT) HCG, ur, POC Negative Negative Lot Number [id number] QC Backgroud Clear Acceptable QC Control Line Acceptable Urine 10/14/2024 8:00 AM CDT Angie Mukherjee MD POINT OF CARE TEST ORDERABL ES Final Result * eGFR (10/14/2024 7:58 AM CDT) Pathologist [facility] eGFR >90 >=60 mL/min/1. 73 m2 [...] was last reviewed 2021. Testing performed by: [facility], [address] [place] [address]., [address] Blood 10/14/2024 7:58 AM CDT 10/14/2024 8:14 AM CDT Angie Mukherjee MD LAB BLOOD ORDERABLES Final Result LAURIE [address] [place] [address] [place] [address] * Differential, auto (10/14/2024 7:58 AM CDT) Neutrophil abs 3.76 1.50 - 6.50 K/cumm Comment:Testing performed by : [address] [address] Imm gran abs 0.02 0.00 - 0.10 K/cumm LAURIE Comment:Testing performed by : [address] [address] Lymphocyte abs 2.95 0.80 - 3.30 K/cumm LAURIE Comment:Testing performed by : [address] [address] Monocyte abs 0.43 0.20 - 0.80 K/cumm [facility] Comment:Testing performed by : [address] [address] Eosinophil abs 0.10 0.00 - 0.50 K/cumm LAURIE Comment:Testing performed by : [address] [address] Basophil abs 0.03 0.00 - 0.10 K/cumm [facility] Comment:Testing performed by : [address] [address] Neutrophil pct 51.5 % [facility] Comment: Interpretive Data Percent cell count reference ranges are not reported, since discordance with absolute values may lead to misinterpretation of CBC data. Current Interpretive Data was last revised on 2017. Testing performed by: [address] [address] Imm gran pct 0.3 % [facility] Comment: Interpretive Data Percent cell count reference ranges are not reported, since discordance with absolute values may lead to misinterpretation of CBC data. Current Interpretive Data was last revised on 2017. Testing performed by: [address] [address] Lymphocyte pct 40.5 % [facility] Comment: Interpretive Data Percent cell count reference ranges are not reported, since discordance with absolute values may lead to misinterpretation of CBC data. Current Interpretive Data was last revised on 2017. Testing performed by: [address] [address] Monocyte pct 5.9 % LAURIE Comment: Interpretive Data Percent cell count reference ranges are not reported, since discordance with absolute values may lead to misinterpretation of CBC data. Current Interpretive Data was last revised on 2017. Testing performed by: [address] [address] Eosinophil pct 1.4 % LAURIE Comment: Interpretive Data Percent cell count reference ranges are not reported, since discordance with absolute values may lead to misinterpretation of CBC data. Current Interpretive Data was last revised on 2017. Testing performed by: [address] [address] Basophil pct 0.4 % LAURIE Comment: Interpretive Data Percent cell count reference ranges are not reported, since discordance with absolute values may lead to misinterpretation of CBC data. Current Interpretive Data was last revised on 2017. Testing performed by: [address] [address] Blood 10/14/2024 7:58 AM CDT 10/14/2024 8:14 AM CDT Angie Mukherjee MD LAB BLOOD ORDERABLES Final Result [facility] [address] [facility] Department of Laboratories [place], [place] [id number] * (ABNORMAL) CBC with auto differential (10/14/2024 7:58 AM CDT) WBC 7.29 3.80 - 9.90 K/cumm Comment:Testing performed by : [address] [address] Hgb 14.6 11.9 - 15.5 g/dL LAURIE Comment:Testing performed by : [address] [address] Hct 43.7 35.6 - 45.5 % LAURIE Comment:Testing performed by : [address] [place]., [address] Plt 345 150 - 400 K/cumm LAURIE WAGGONER Comment:Testing performed by : [address] [address] MPV 8.9(L) 9.1 - 12.3 fL LAURIE WAGGONER Comment:Testing performed by : [address] [address] RBC 4.95 3.90 - 5.20 M/cumm LAURIE WAGGONER Comment:Testing performed by : [address] [address] MCV 88.3 81.3 - 96.4 fL LAURIE Comment:Testing performed by : [address] [address] MCH 29.5 27.1 - 33.3 pg LAURIE WAGGONER Comment:Testing performed by : [address] [address] MCHC 33.4 32.3 - 35.7 g/dL LAURIE Comment:Testing performed by : [address], [address] RDW CV 12.4 11.1 - 14.9 % LAURIE Comment:Testing performed by : [address] [address] RDW SD 40.2 35.7 - 48.1 fL LAURIE WAGGONER Comment:Testing performed by : [address] [address] NRBC abs 0.00 0.00 - 0.01 K/cumm LAURIE Comment:Testing performed by : [address] [address] Blood Venous blood specimen / Unknown 10/14/2024 7:58 AM CDT 10/14/2024 8:14 AM CDT us Angie Mukherjee MD LAB BLOOD ORDERABLES Final Result LAURIE [address] [facility] Department [place] [address] * Lipase (10/14/2024 7:58 AM CDT) Lipase 29 10 - 99 Units/L Comment:Testing performed by : [address] [address] Blood Venous blood specimen / Unknown 10/14/2024 7:58 AM CDT 10/14/2024 8:14 AM CDT Angie Mukherjee MD LAB BLOOD ORDERABLES Final Result [facility] [address] [facility] [place] [address] * (ABNORMAL) Comprehensive metabolic panel (10/14/2024 7:58 AM CDT) Pathologist [facility] Sodium 139 135 - 145 mmol/L Comment:Testing performed by : [address] [address] Potassium, pl 4.3 3.3 - 4.9 mmol/L LAURIE Comment:Testing performed by : [address] [address] Chloride 103 97 - 110 mmol/L LAURIE Comment:Testing performed by : [address] [address] CO2 23 22 - 32 mmol/L LAURIE Comment:Testing performed by : [address] [address] Anion gap 13 2 - 15 mmol/L LAURIE Comment:Testing performed by : [address] [address] BUN 11 6 - 25 mg/dL LAURIE Comment:Testing performed by : [address] [address] Creatinine 0.86 0.60 - 1.10 mg/dL LAURIE Comment:Testing performed by : [address] [address] Glucose 96 70 - 199 mg/dL LAURIE [...] was last revised 2022. Testing performed by: [address] [address] Calcium 10.4(H) 8.5 - 10.3 mg/dL LAURIE Comment:Testing performed by : [address] [address] Bilirubin, total 0.6 0.1 - 1.2 mg/dL LAURIE Comment:Testing performed by : [address] [address] Protein, pl 8.6(H) 6.5 - 8.5 g/dL LAURIE Comment:Testing performed by : [address] [address] Albumin 4.4 3.5 - 5.0 g/dL LAURIE Comment:Testing performed by : [address] [address] Alk phos 79 40 - 130 Units/L LAURIE Comment:Testing performed by : [address] [address] ALT 14 7 - 45 Units/L LAURIE Comment:Testing performed by : [address] [address] AST 20 10 - 45 Units/L LAURIE Comment:Testing performed by : [address] [address] Blood 10/14/2024 7:58 AM CDT 10/14/2024 8:14 AM CDT us Angie Mukherjee MD LAB BLOOD ORDERABLES Final Result LAURIE [address] [facility] [place] [address] from Last 3 Months Insurance [facility] Member Subscriber Plan / Payer (Ef fective 2019-Present) Name:Aby Jenkinsnathalia Maxwell Relation to Subscriber:Self Name:Aby Jenkinsludwigradha Hans Payer ID:[id number] (NAIC) Group ID:Not on file Type:MEDICAID [id number] OTHER Address: [address] [place] [address] [place] [address] [facility] Advance Directives For more information, please contact: [phone] * Full Code (Latest Code Status on File) Date Activated Date Inactivated Comments 06/09/2022 2:11 PM 06/09/2022 9:02 PM Care Teams Nurse First Aid Relationship Specialty Start Date End Date Lizbet Soler DO [address] [place] [address] PCP - General Internal Medicine 01/01/24
--- OUTSIDE RECORDS SUMMARY | 2024-11-09 11:21 | XMS_ITS | Encounter Summary ---
Author Organization [facility] Address [address] [place] [id number] Care Team Providers Care Metal Cnc Operator Name Role Phone None, Provider Primary Care Provider Beckiea ble Encounter Details Date Type Department Care Team (Late st Contact Info) Description 05/12/2019 Hospital Follow-up Call [facility] [place] [address] Destiney Joseph, RN Social History Tobacco Use [...] Assessment Author Status No 05/09/2019 2:50 AM [employer]ARN [employer] Activ e * RETIRED Are you blind or do you have serious difficulty seeing, even when wearing glasses? Answer Date of Assessment Author Status No 05/09/2019 2:50 AM YARN HAULER Activ e * Do you have serious [...] on filedocumented in this encounter Care Teams Metal Cnc Operator Relationship Specialty Start Date End Date None, Provider, PCP - General 12/05/18 documented as of this encounter
[2024-11-09 12:55] VITALS: BP 147/84; PULSE 74; RESP 18; O2SAT 100
== END 2024-11-09 12:53 | disposition home or self-care (01) ==
PROVIDERS: Emergency Provider Physician Assistant
DX: M54.32 Sciatica, left side (principal); I10 Essential (primary) hypertension
CPT/HCPCS: 31899; 72100; 81025; 96372; 99283; A9270; J1885